=== PATIENT | female | born 1935 | race Caucasian/White ===

== ENCOUNTER 2019-12-19 17:21 | Observation (INO) | payer MEDICARE, SELFPAY ==
--- NOTE | ~2019-12-19 | CT_ITS ---
EXAMINATION: CT brain wo con DATE: 12/19/2019 18:36 INDICATION: Status post fall. Headache. TECHNIQUE: Computed tomography (CT) of the head was performed without intravenous contrast. The dose- length product was 605.33 mGy-cm. The mA was adjusted according to patient size. Iterative reconstruc tion technique was employed. COMPARISON: None FINDINGS: Generalized atrophy. There are scattered moderate periventricular and subcortical white mat ter changes, most likely related to small vessel ischemic disease (microangiopathy). There is intracr anial atherosclerosis. No acute intracranial hemorrhage, mass or mass effect. No significant abnormal ity of the paranasal sinuses or mastoids. No depressed skull fractures. IMPRESSION: 1. No acute intracranial abnormality. 2: Chronic age-related findings. Reviewed, dictated and finalized at location A.
--- NOTE | ~2019-12-19 | CT_ITS ---
EXAMINATION: CT cervical spine wo con DATE: 12/19/2019 18:36 INDICATION: Neck pain after fall. TECHNIQUE: Computed tomography (CT) of the cervical spine was performed without intravenous contrast. The dose-length product was 157 mGy-cm. Automated exposure control and iterative reconstruction tech nique were employed. COMPARISON: None FINDINGS: There is straightening of cervical lordosis. There is disc narrowing and endplate degenerat broderick changes at C5-6 and C6-7. There is degenerative anterolisthesis at C3-4 and retrolisthesis at C5- 6. There is multilevel facet and uncinate hypertrophy, most advanced at C4-5, C5-6 and C6-7. There is apical pleural thickening/scarring. Odontoid process within normal limits. No acute fracture or trau matic malalignment. No evidence for perched facet. IMPRESSION: 1. No acute abnormality of the cervical spine. 2: Severe cervical spondylosis. Reviewed, dictated and finalized at location A.
--- NOTE | ~2019-12-19 | XR_ITS ---
XR chest 1V portable 12/19/2019 18:51 Indication: Weakness Procedure: AP portable chest Comparison: 07/16/2013 Findings: Cardiomegaly. There is atherosclerosis and ectasia of the aorta. 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 No focal air space disease, pulmonary edema, pleu ral effusion or suspected pneumothorax. Impression: 1: No acute cardiopulmonary disease. Reviewed, dictated and finalized at location A. Impression: 1: No acute cardiopulmonary disease.
--- NOTE | ~2019-12-19 | CT_ITS ---
EXAMINATION: CT thoracic spine wo con DATE: 12/19/2019 20:58 INDICATION: Back pain. Status post fall. TECHNIQUE: Computed tomography (CT) of the thoracic spine was performed without intravenous contrast. The dose-length product was 1043.35 mGy-cm. Automated exposure control and iterative reconstruction technique were employed. COMPARISON: Thoracic spine series dated 12/19/2019 FINDINGS: There is a mild burst fracture at T12 which appears acute. There is subtle retropulsion pos teriorly. There is only approximately 10-15% loss of vertebral body height. There is mild thoracic sp ondylosis. There is bibasilar dependent atelectasis. There is atherosclerosis of the aorta. There is small hiatal hernia. No significant pleural or pericardial effusion. No significant paraspinal soft t issue abnormality. IMPRESSION: 1. Acute mild burst fracture of T12 with approximately 10-15% loss of vertebral body height. Reviewed, dictated and finalized at location A.
--- NOTE | ~2019-12-19 | XR_ITS ---
XR thoracic spine 3V, XR lumbar spine 2-3V 12/19/2019 18:51 Indication: Back pain after fall Procedure: 3 views of the thoracic spine and 3 views of the lumbar spine Comparison: Chest x-ray dated 07/16/2013 Findings: There is a superior endplate compression fracture of T12 with approximately 35% loss of lauro tebral body height. There is moderate lumbar spondylosis with grade 1 spondylolisthesis at L5-S1. The re is dextroscoliosis of the thoracic spine. Moderate thoracic spondylosis. Pedicles intact. Impression: 1: Superior endplate compression fracture of T12 with approximately 35 % loss vertebral body height, age indeterminate, although new compared with chest x-ray dated 07/16/2013. 2: Moderate thoracic and lumbar spondylosis. Reviewed, dictated and finalized at location A. Impression: 1: Superior endplate compression fracture of T12 with approximately 35 % loss v ertebral body height, age indeterminate, although new compared with chest x-ray dated 07/16/2013. 2: Moderate thoracic and lumbar spondylosis. Impression: 1: Superior endplate compression fracture of T12 with approximately 35 % loss v ertebral body height, age indeterminate, although new compared with chest x-ray dated 07/16/2013. 2: Moderate thoracic and lumbar spondylosis.
[2019-12-19 17:24] VITALS: BP 140/87; PULSE 85; RESP 20; TEMP 37.4; O2SAT 97
--- NOTE | 2019-12-19 17:58 | ED.GENADULT ---
HPI - General Adult General Chief complaint: Back Pain/Injury Stated complaint: Back pain Time Seen by Provider: 12/19/19 17:29 Source: family History of Present Illness HPI narrative: Patient is 84 years old white female, brought to the emergency room by her . Patient has dementia, oriented to her name only. Her telling me that patient been having back pain for years, worse over the last 2 weeks, got worse 3 days ago. Patient unable to get out of bed without assistance, patient also have poor appetite, poor p.o. intake for food and fluid, long hours sleep. He denies any fever, chills, nausea, vomiting, diarrhea. Patient had a fall 1 week ago while coming out of the house and running in the street. Patient does that every now and then. Last time was seen by over 1 year ago, does not take medicine. And she is full code Related Data Home Medications Medication Instructions Recorded Confirmed No Home Medications 12/19/19 12/19/19 Allergies Allergy/AdvReac Type Severity Reaction Status Date / Time Sulfa (Sulfonamide Allergy Mild Unknown Verified 12/19/19 18:04 Antibiotics) [place] Allergy Mild Unknown Uncoded 12/19/19 18:04 Review of Systems Review of Systems: ROS unobtainable: Yes unobtainable due to mental status Exam Narrative: Exam Narrative: General appearance: Well-developed, well-nourished Skin: Normal color Head: Normocephalic, nontraumatic Eyes: Clear conjunctiva ENT: Oropharynx normal, ears normal, nose normal Neck: Supple, nontender Chest and respiratory: Airway patent, no respiratory distress, no accessory muscle use Heart: Regular rate/rhythm Abdomen: Soft, nontender, no organomegaly, quiet bowel sounds Vascular: Normal peripheral pulses, normal capillary refill. Musculoskeletal: Diffuse tenderness of the back, patient have dementia, non-cooperative, unable to sit up from a laying down position or even rolling over to either side. Neurologic: Alert and oriented oriented to her name only Course Course Emergency Course: Stable Consultations Consultation #1: DR MANCUSO Recommended to admit patient overnight for follow-up. Date: 12/19/19 Time: 20:41 Vital Signs Vital signs: Vital Signs Temperature 37.4 C 12/19/19 17:24 Pulse Rate 85 12/19/19 17:24 Respiratory Rate 20 12/19/19 17:24 Blood Pressure 140/87 12/19/19 17:24 Pulse Oximetry 97 12/19/19 17:24 Temperature 37.4 C 12/19/19 17:24 Pulse Rate 85 12/19/19 17:24 Respiratory Rate 20 12/19/19 17:24 Blood Pressure 140/87 12/19/19 17:24 Pulse Oximetry 97 12/19/19 17:24 Medical Decision Making MDM Narrative Medical decision making narrative: Patient is healthy otherwise, does not take medications, history of dementia, last time was seen by over 1 year ago. My concern is urinary tract infection, pneumonia, electrolyte imbalance, advancing dementia, back fracture. Vital Signs Vital Signs: Vital Signs Temperature 37.4 C 12/19/19 17:24 Pulse Rate 85 12/19/19 17:24 Respiratory Rate 20 12/19/19 17:24 Blood Pressure 140/87 12/19/19 17:24 Pulse Oximetry 97 12/19/19 17:24 Temperature 37.4 C 12/19/19 17:24 Pulse Rate 85 12/19/19 17:24 Respiratory Rate 20 12/19/19 17:24 Blood Pressure 140/87 12/19/19 17:24 Pulse Oximetry 97 12/19/19 17:24 Lab Data Result diagrams: 12/19/19 18:01 12/19/19 18:01 Labs: Lab Results 12/19/19 12/19/19 12/19/19 Range/Units 18:01 18:01 18:01 WBC 10.2 H (4.5-10.0) K/mm3 RBC 5.02 (4.2-5.4) M/mm3 Hgb 15.7 H (12.0-15.0) g/dL Hct 45.1 (37.0-47.0) % MCV 89.8 (80-100) fl MCH 31.3 (26-34) p
[2019-12-19 18:06] LABS: Basophils Percent Auto 0.4 % (0.2-1.2); Eosinophils Absolute Auto 0.1 K/mm3 (0-0.3); Eosinophils Percent Auto 0.6 % (0-4.4); Hematocrit 45.1 % (37.0-47.0); Hemoglobin 15.7 g/dL (12.0-15.0); Immature Granulocyte Absolute 0.03 K/mm3 (0.00-0.031); Immature Granulocyte Percent A 0.3 % (0-0.5); Lymphocytes Absolute Auto 1.83 K/mm3 (0.9-3.2); Mean Corpuscular HGB Conc 34.8 g/dl (32-36); Mean Corpuscular Hemoglobin 31.3 pg (26-34); Mean Corpuscular Volume 89.8 fl (80-100); Mean Platelet Volume 11.5 fl (7.4-10.4); Monocytes Absolute Auto 1.2 K/mm3 (0.1-0.6); Monocytes Percent Auto 11.4 % (2.6-8.5); Neutrophils Percent Auto 69.3 % (45.5-73.1); Platelet Count Result 216 k/mm3 (150-375); Red Blood Count 5.02 M/mm3 (4.2-5.4); Red Cell Distribution Width 12.8 % (11.5-14.5); White Blood Count 10.2 K/mm3 (4.5-10.0)
[2019-12-19] MEDS: SODIUM CHLORIDE 0.9% IV 1,000 ML 999 ML IV CONT (18:16)
[2019-12-19 18:20] LABS: Alanine Aminotransferase 27 U/L (4-35); Albumin Level 4.3 g/dL (3.5-5.1); Alkaline Phosphatase 84 U/L (38-126); Anion Gap 13.1 mmol/L (7-16); Aspartate Amino Transferase 41 U/L (14-36); Bilirubin,Total 0.8 mg/dL (0.2-1.3); Blood Urea Nitrogen 18 mg/dL (7-17); CRP 3.9 mg/dL (<1.0); Calcium 9.3 mg/dL (8.4-10.2); Carbon Dioxide 21 mmol/L (22-30); Chloride 105 mmol/L (98-107); Estimated Glomerular Filt Rate > 60; Glucose 122 mg/dL (65-105); Potassium 4.1 mmol/L (3.4-5.0); Sodium 135 mmol/L (137-145)
[2019-12-19 18:30] LABS: Troponin I < 0.012 ng/mL (0.000-0.034)
[2019-12-19 18:37] LABS: Add Urine Microscopic? YES; Appearance Urine Clear (Clear); Bilirubin Urine Negative (Negative); Blood Urine Negative (Negative); Color Urine Yellow (Yellow); Glucose Urine UA Negative (Negative); Ketones Urine 1+ mg/dL (Negative); Leukocyte Esterase Ur 1+ LEU/UL (Negative); Mucus Urine Few /lpf; Nitrate Urine Negative (Negative); Protein Urine 1+ mg/dL (Negative); Specific Grav Ur 1.028 (1.001-1.035); Squamous Epithelial Cell Urine Occasional /hpf (Few)
[2019-12-19 18:40] LABS: Erythrocyte Sedimentation Rate 20 mm/hr (0-20)
--- NOTE | 2019-12-19 22:08 | PC.NURSE ---
request patient does not want patient to have an additional iv at this time. pt has had 3 and pulled them all out.
--- NOTE | 2019-12-19 23:20 | ADMGEN ---
This patient, Deepali Haro, was admitted to 2 Medical Room 256-01. Patient/family oriented to hospital policies and general routines including ID bracelet, bed and alarms, visiting hours, pain management, procedures, bathroom and other care routines, personal items, smoking policy, room service/diet, and visiting hours. Valuables list has been completed. Information on how to activate the Rapid Response Team has been discussed. Patient/Family are encouraged to report perceived risks to care and to ask questions if they do not understand what they are told or what they should do.
[2019-12-19 23:31] VITALS: BP 157/77; PULSE 75; RESP 20; TEMP 36.2; O2SAT 96; BMI 23.0
[2019-12-20 02:00] VITALS: BP 146/94; PULSE 75; RESP 20; TEMP 36.2; O2SAT 96
--- NOTE | 2019-12-20 03:03 | PM.IMHP ---
H&P: HPI History of Present Illness Chief complaint: back pain, weakness Narrative: Date and time of patient contact: 12/20/2019 at 03:15 Deepali Haro is a 84 year old female with a past medical history of coronary artery disease and dementia who presented to the ER from home via private vehicle due to worsening back pain. The patient has been having back pain for years but is worsened over the last 2 weeks. The patient has been unable to get out of bed without assistance for the last 3 days. She has had decreased oral intake and is bends sleeping excessively. The patient did have a fall about a week ago when she ran out of the house into the street as part of her dementia. The patient has not seen a doctor in over a year and does not take any home medications. The patient denies any pain currently. Source of information is past medical records from 2011 and ER report. Patient is alert oriented only to self. Review of Systems Review of Systems: ROS unobtainable: Yes unobtainable due to mental status ( Unobtainable due to the patient's dementia) [facility] Past Medical History Medical History (Updated 12/20/19 @ 03:17 by Candice Greenberg DO) Alzheimer's disease with late onset Hard of hearing Hyperlipidemia Osteoporosis Surgical History Surgical History (Updated 12/20/19 @ 03:14 by Candice Greenberg DO) History of colonoscopy 2008 that demonstrated hemorrhoids History of coronary artery stent placement With cardiac stent placed in 1998 and 2004 History of dilation and curettage Status post cataract extraction of both eyes with insertion of intraocular lens Family History Family History Mother Dementia CAD (coronary artery disease) Cerebrovascular accident Father CAD (coronary artery disease) Colon cancer Sibling Dementia TIA (transient ischemic attack) Heart attack Social History Social History (Updated 12/20/19 @ 03:15 by Candice Greenberg DO) Social History: Smoking status: Never smoker Alcohol intake: never Substance use: never Substance use type: does not use Living arrangements: with family Additional living arrangements comments: The patient lives at home with her who provides all her cares. 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 Spiritual care concerns: No Meds Home Medications and Allergies Home Medications Medication Instructions Recorded Confirmed Type multivitamin,[id number]-[id number] 1 tablet PO DAILY 12/20/19 12/20/19 History [Complete Multivitamin] Allergies Allergy/AdvReac Type Severity Reaction Status Date / Time Sulfa (Sulfonamide Allergy Mild Unknown Verified 12/19/19 18:04 Antibiotics) [place] Allergy Mild Unknown Uncoded 12/19/19 18:04 Vital Signs Vital Signs - 24 hr 12/19/19 17:24 12/19/19 23:31 12/20/19 02:00 Temperature 99.4 F 97.2 F L 97.2 F L Pulse Rate 85 75 75 Respiratory Rate 20 20 20 Blood Pressure 140/87 157/77 H 146/94 H Pulse Oximetry 97 96 96 Exam Narrative: Exam Narrative: PHYSICAL EXAM: WEIGHT 64.8 kg BMI 23.1 General: no acute distress, thin body habitus, elderly, frail HEENT: mucous membranes are tacky, no oral pharyngeal erythema, no scleral icterus, pupils are equal and reactive, head is normocephalic atraumatic Neck: no JVD, no lymphadenopathy, no tenderness to palpation Respiratory: clear to auscultation bilaterally, no increased work of breathing Cardiovascular: regular rate, regular rhythm, no murmurs Gastrointestinal: soft, nontender, nondistended, positive bowel sounds Skin: jaundice, no pallor Extremities: no clubbing, cyanosis or edema, moves all extremities equally Neurological: alert and oriented to self only, speech is clear and fluent. The sentence that she speaks will make sense but will not necessarily be the answer to the question that was asked. She is
[2019-12-20 04:00] VITALS: BP 156/74; PULSE 76; RESP 20; TEMP 36.2; O2SAT 94
--- NOTE | 2019-12-20 07:09 | PM.CNOR ---
Assessment and Plan Additional Plan Patient is an 84-year-old female who was admitted last evening with a compression deformity at T12. She has a history of a fall about a week ago and over the last several days her back pain has become excruciating. She does have a history of back pain in the past. Her fall was during an episode of confusion when she ran out into the street. She does have dementia. This morning she is very pleasant and home and describes how much her back is been hurting much more than she has ever had before. She is comfortable at rest lying supine. On exam she denies any numbness or tingling in her feet on light touch testing she has no lower extremity swelling. She moves her ankles and toes up and down without difficulty. CT scan shows a 15% compression deformity that represents impaction of the superior endplate of T12. There is a mild burst component without significant canal compromise. This should be treatable in a brace. We will ask [employer] to fit her for a TLSO. We will keep her at bed rest it until the TLSO was applied. Will of use SCDs for DVT prophylaxis. She has no swelling or edema in her legs whatsoever today. History of Present Illness HPI Consult date: 12/20/19 Chief complaint: back pain, weakness PMFSH Past Medical History Medical History (Updated 12/20/19 @ 03:17 by Candice Greenberg DO) Alzheimer's disease with late onset Hard of hearing Hyperlipidemia Osteoporosis Surgical History Surgical History (Updated 12/20/19 @ 03:14 by Candice Greenberg DO) History of colonoscopy 2008 that demonstrated hemorrhoids History of coronary artery stent placement With cardiac stent placed in 1998 and 2004 History of dilation and curettage Status post cataract extraction of both eyes with insertion of intraocular lens Family History Family History Mother Dementia CAD (coronary artery disease) Cerebrovascular accident Father CAD (coronary artery disease) Colon cancer Sibling Dementia TIA (transient ischemic attack) Heart attack Social History Social History (Updated 12/20/19 @ 03:15 by Candice Greenberg DO) Social History: Smoking status: Never smoker Alcohol intake: never Substance use: never Substance use type: does not use Living arrangements: with family Additional living arrangements comments: The patient lives at home with her who provides all her cares. 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 Spiritual care concerns: No Meds Home Medications and Allergies Home Medications Medication Instructions Recorded Confirmed Type multivitamin,[id number] 1 tablet PO DAILY 12/20/19 12/20/19 History [Complete Multivitamin] Allergies Allergy/AdvReac Type Severity Reaction Status Date / Time Sulfa (Sulfonamide Allergy Mild Unknown Verified 12/19/19 18:04 Antibiotics) [place] Allergy Mild Unknown Uncoded 12/19/19 18:04 Vital Signs Vital Signs - 24 hr 12/19/19 17:24 12/19/19 23:31 12/20/19 02:00 Temperature 37.4 C 36.2 C L 36.2 C L Pulse Rate 85 75 75 Respiratory Rate 20 20 20 Blood Pressure 140/87 157/77 H 146/94 H Pulse Oximetry 97 96 96 12/20/19 04:00 Temperature 36.2 C L Pulse Rate 76 Respiratory Rate 20 Blood Pressure 156/74 H Pulse Oximetry 94 Results Labs Result Diagrams: 12/19/19 18:01 12/19/19 18:01 Labs: Abnormal lab results 12/19/19 12/19/19 12/19/19 Range/Units 18:01 18:01 18:22 WBC 10.2 H (4.5-10.0) K/mm3 Hgb 15.7 H (12.0-15.0) g/dL MPV 11.5 H (7.4-10.4) fl Lymph % (Auto) 18.0 L (18.3-44.2) % [place] % (Auto) 11.4 H (2.6-8.5) % [place] # (Auto) 1.2 H (0.1-0.6) K/mm3 Absolute Neuts (auto) 7.0 H (1.3-6.7) K/mm3 Sodium 135 L (137-145) mmol/L Carbon Dioxide 21 L (22-30) mmol/L BUN 18 H D (7-17) mg/dL Glucose
[2019-12-20 08:00] VITALS: BP 139/80; PULSE 69; RESP 18; TEMP 35.9; O2SAT 94
--- NOTE | 2019-12-20 09:23 | PCPTNOTE ---
Pt on bedrest until TLSO brace delivered. Will see pt for PT evaluation once brace received.
--- NOTE | 2019-12-20 10:43 | PCOTNOTE ---
Patient on bedrest until TLSO brace is delivered. Will complete occupational therapy evaluation upon receipt of brace.
[2019-12-20 12:00] VITALS: BP 139/81; PULSE 70; RESP 20; TEMP 35.6; O2SAT 97
--- NOTE | 2019-12-20 13:26 | PCOTNOTE ---
OT evaluation on hold until TLSO arrives from [facility]. Spoke with RN, TLSO brace should arrive tomorrow 12/20. Will attempt OT evaluation upon brace arrival.
[2019-12-20 16:00] VITALS: BP 140/79; PULSE 69; RESP 18; TEMP 35.9; O2SAT 94
--- NOTE | 2019-12-20 18:12 | PM.IMPN ---
Progress Note: A&P Assessment and Plan (1) Closed wedge compression fracture of T12 vertebra: Qualifiers: Encounter type: subsequent encounter Fracture healing: with nonunion Qualified Code(s): S22.080K - Wedge compression fracture of T11-T12 vertebra, subsequent encounter for fracture with nonunion Code(s): S22.080A - Wedge compression fracture of T11-T12 vertebra, initial encounter for closed fracture Status: Acute Assessment and Plan: Continue pain control and monitor. Appreciate orthopedic surgery recommendations - awaiting TLSO brace from [facility] and anticipate discharge to SNF. (2) Dementia: Qualifiers: Alzheimer's disease onset: late-onset Dementia behavioral disturbance: with behavioral disturbance Dementia type: Alzheimer's disease Qualified Code(s): G30.1 - Alzheimer's disease with late onset; F02.81 - Dementia in other diseases classified elsewhere with behavioral disturbance Code(s): F03.90 - Unspecified dementia without behavioral disturbance Status: Chronic Assessment and Plan: Patient is currently calm and at baseline. Limit narcotic use to avoid increased confusion. Subjective Date/time seen: 12/20/19 1500 Interval history: Ms. Haro is an 84yo F admitted for acute back pain with a T12 compression fracture. She is feeling okay lying supine and pain is decently controlled at rest. She denies any chest pain or shortness of breath. She has tolerated some oral intake without nausea or vomiting. Review of Systems Review of Systems: Narrative: Twelve systems were reviewed with pertinent positives and negatives as per HPI. Exam Narrative: Exam Narrative: General: Elderly female resting comfortably supine in bed in no acute distress. HEENT: Normocephalic, EOMI, oral mucosa moist. Cardiovascular: Rate and rhythm are regular. Respiratory: Lungs clear to auscultation anteriorly and laterally. Respirations are even and nonlabored. Abdomen: Soft, non-tender, non-distended, bowel sounds present. Extremities: Peripheral pulses intact. No edema. Neuro: Alert and oriented to self and place. Not very talkative but speech is clear. No focal neurological deficits appreciated. Objective Data Vital Signs Vital Signs: Last Vital Signs Temp 96.1 F L 12/20/19 12:00 Pulse 70 12/20/19 12:00 Resp 20 12/20/19 12:00 BP 139/81 12/20/19 12:00 Pulse Ox 97 12/20/19 12:00 Intake/Output Intake/Output: Intake & Output 12/17/19 12/18/19 12/19/19 12/20/19 23:59 23:59 23:59 23:59 Intake Total 600 360 Output Total 250 Balance 350 360 Meds/Results Medications: Active Medications Generic Name Dose Route Start Last Admin Trade Name Freq PRN Reason Stop Dose Admin Hydrocodone Bitart/Acetaminophen 1 tab 12/19/19 21:17 12/20/19 08:13 [place] 5-325 Mg PO 1 tab Q4H PRN Administration Pain Rated 4-6 Ondansetron HCl 4 mg 12/19/19 21:17 Zofran Inj IV PUSH Q4H PRN Nausea Radiology Results: ITS Impressions Head CT 12/19/19 18:41 IMPRESSION: 1. No acute intracranial abnormality. 2: Chronic age-related findings. Cervical Spine CT 12/19/19 18:44 IMPRESSION: 1. No acute abnormality of the cervical spine. 2: Severe cervical spondylosis. Chest X-Ray 12/19/19 19:02 Impression: 1: No acute cardiopulmonary disease. Lumbar Spine X-Ray 12/19/19 19:03 Impression: 1: Superior endplate compression fracture of T12 with approximately 35 % loss vertebral body height, age indeterminate, although new compared with chest x-ray dated 07/16/2013. 2: Moderate thoracic and lumbar spondylosis. Thoracic Spine X-Ray 12/19/19 19:03 Impression: 1: Superior endplate compression fracture of T12 with approximately 35 % loss vertebral body height, age indeterminate, although new compared with chest x-ray dated 07/16/2013. 2: Moderate thoracic and lumbar spo
[2019-12-20 20:00] VITALS: BP 153/88; PULSE 90; RESP 18; TEMP 36.1; O2SAT 95
[2019-12-21] VITALS: BP 148/72; PULSE 89; RESP 18; TEMP 36.3; O2SAT 94
[2019-12-21 04:00] VITALS: BP 135/55; PULSE 79; RESP 18; TEMP 36.5; O2SAT 97
--- NOTE | 2019-12-21 07:35 | P.PNOP_ITS ---
Progress Note: A&P Additional Plan pt is scheduled to get TLSO brace today, once this applied can get pt up for ambulation. Still c/o pain in the back. Able to wiggle toes and ankles,no c/o of numbness in LE. no swelling in LE. Subjective Subjective Date/Time Seen: 12/21/19 07:35 Objective Data Vital Signs Vital Signs: Vital Signs - 24 hr 12/20/19 08:00 12/20/19 12:00 12/20/19 16:00 Temperature 35.9 C L 35.6 C L 35.9 C L Pulse Rate 69 70 69 Respiratory Rate 18 20 18 Blood Pressure 139/80 139/81 140/79 Pulse Oximetry 94 97 94 12/20/19 20:00 12/21/19 00:00 12/21/19 04:00 Temperature 36.1 C L 36.3 C L 36.5 C Pulse Rate 90 89 79 Respiratory Rate 18 18 18 Blood Pressure 153/88 H 148/72 H 135/55 L Pulse Oximetry 95 94 97 Intake/Output Intake/Output: Intake & Output 12/18/19 12/19/19 12/20/19 12/21/19 23:59 23:59 23:59 23:59 Intake Total 600 360 Output Total 250 900 Balance 350 -540 Meds/Results Medications: Active Medications Generic Name Dose Route Start Last Admin Trade Name Freq PRN Reason Stop Dose Admin Hydrocodone Bitart/Acetaminophen 1 tab 12/19/19 21:17 12/20/19 08:13 [place] 5-325 Mg PO 1 tab Q4H PRN Administration Pain Rated 4-6 Ondansetron HCl 4 mg 12/19/19 21:17 Zofran Inj IV PUSH Q4H PRN Nausea Radiology Results: ITS Impressions Head CT 12/19/19 18:41 IMPRESSION: 1. No acute intracranial abnormality. 2: Chronic age-related findings. Cervical Spine CT 12/19/19 18:44 IMPRESSION: 1. No acute abnormality of the cervical spine. 2: Severe cervical spondylosis. Chest X-Ray 12/19/19 19:02 Impression: 1: No acute cardiopulmonary disease. Lumbar Spine X-Ray 12/19/19 19:03 Impression: 1: Superior endplate compression fracture of T12 with approximately 35 % loss vertebral body height, age indeterminate, although new compared with chest x-ray dated 07/16/2013. 2: Moderate thoracic and lumbar spondylosis. Thoracic Spine X-Ray 12/19/19 19:03 Impression: 1: Superior endplate compression fracture of T12 with approximately 35 % loss vertebral body height, age indeterminate, although new compared with chest x-ray dated 07/16/2013. 2: Moderate thoracic and lumbar spondylosis. Thoracic Spine CT 12/19/19 21:03 IMPRESSION: 1. Acute mild burst fracture of T12 with approximately 10-15% loss of vertebral body height. Quality VTE Prophylaxis VTE prophylaxis: mechanical ordered ( SCDs)
[2019-12-21 08:05] LABS: Glucose Point of Care 92 (65-105)
--- NOTE | 2019-12-21 09:56 | PM.IMPN ---
Progress Note: A&P Assessment and Plan (1) Closed wedge compression fracture of T12 vertebra: Qualifiers: Encounter type: subsequent encounter Fracture healing: with nonunion Qualified Code(s): S22.080K - Wedge compression fracture of T11-T12 vertebra, subsequent encounter for fracture with nonunion Code(s): S22.080A - Wedge compression fracture of T11-T12 vertebra, initial encounter for closed fracture Status: Acute Assessment and Plan: Continue pain control and monitor. Appreciate orthopedic surgery recommendations - awaiting TLSO brace from [facility], should be delivered today and anticipate discharge to SNF. COVID testing for discharge planning. (2) Dementia: Qualifiers: Alzheimer's disease onset: late-onset Dementia behavioral disturbance: with behavioral disturbance Dementia type: Alzheimer's disease Qualified Code(s): G30.1 - Alzheimer's disease with late onset; F02.81 - Dementia in other diseases classified elsewhere with behavioral disturbance Code(s): F03.90 - Unspecified dementia without behavioral disturbance Status: Chronic Assessment and Plan: Patient is currently calm and at baseline. Limit narcotic use to avoid increased confusion. Subjective Date/time seen: 12/21/19 09:30 Interval history: Ms. Haro is an 84yo F admitted for acute back pain with a T12 compression fracture. She is feeling okay lying supine and pain is decently controlled at rest. Slept well last night and offers no complaints. She denies any chest pain or shortness of breath. She has tolerated some oral intake without nausea or vomiting. Pleasantly confused, able to answer questions but does repeat some questions and phrases. Review of Systems Review of Systems: Narrative: Twelve systems were reviewed with pertinent positives and negatives as per HPI. Exam Narrative: Exam Narrative: General: Elderly female resting comfortably supine in bed in no acute distress. HEENT: Normocephalic, EOMI, oral mucosa moist. Cardiovascular: Rate and rhythm are regular. Respiratory: Lungs clear to auscultation anteriorly and laterally. Respirations are even and nonlabored. Abdomen: Soft, non-tender, non-distended, bowel sounds present. Extremities: Peripheral pulses intact. No edema. Neuro: Alert and oriented to self, knows she is in the hospital. Appears to be at her baseline cognitively, no focal neuro deficits are noted. Able to wiggle toes and feet sensation intact CHRIS. Objective Data Vital Signs Vital Signs: Last Vital Signs Temp 97.7 F 12/21/19 04:00 Pulse 79 12/21/19 04:00 Resp 18 12/21/19 04:00 BP 135/55 L 12/21/19 04:00 Pulse Ox 97 12/21/19 04:00 Intake/Output Intake/Output: Intake & Output 12/18/19 12/19/19 12/20/19 12/21/19 23:59 23:59 23:59 23:59 Intake Total 600 360 100 Output Total 250 900 Balance 350 -540 100 Meds/Results Medications: Active Medications Generic Name Dose Route Start Last Admin Trade Name Freq PRN Reason Stop Dose Admin Hydrocodone Bitart/Acetaminophen 1 tab 12/19/19 21:17 12/21/19 08:05 [place] 5-325 Mg PO 1 tab Q4H PRN Administration Pain Rated 4-6 Ondansetron HCl 4 mg 12/19/19 21:17 Zofran Inj IV PUSH Q4H PRN Nausea Radiology Results: ITS Impressions Head CT 12/19/19 18:41 IMPRESSION: 1. No acute intracranial abnormality. 2: Chronic age-related findings. Cervical Spine CT 12/19/19 18:44 IMPRESSION: 1. No acute abnormality of the cervical spine. 2: Severe cervical spondylosis. Chest X-Ray 12/19/19 19:02 Impression: 1: No acute cardiopulmonary disease. Lumbar Spine X-Ray 12/19/19 19:03 Impression: 1: Superior endplate compression fracture of T12 with approximately 35 % loss vertebral body height, age indeterminate, although new compared with chest x-ray dated 07/16/2013. 2: Moderate thoracic and lumbar sp
[2019-12-21 10:00] VITALS: BP 115/65; PULSE 66; RESP 16; TEMP 36.4; O2SAT 95
--- NOTE | 2019-12-21 11:30 | PC.NURSE ---
Back brace was delivered. Notified PT/OT so they are able to complete eval. Spoke with Janny Brito.
[2019-12-21 14:00] VITALS: BP 134/82; PULSE 96; RESP 16; TEMP 36.4; O2SAT 98
[2019-12-21 18:00] VITALS: BP 154/85; PULSE 98; RESP 18; TEMP 36.8; O2SAT 100
[2019-12-21 18:03] LABS: SARS-CoV-2 RNA PCR Negative
[2019-12-21 21:53] VITALS: BP 158/77; PULSE 77; RESP 20; TEMP 36.2; O2SAT 97
[2019-12-22 02:00] VITALS: BP 130/76; PULSE 79; RESP 18; TEMP 36.2; O2SAT 96
[2019-12-22 04:00] VITALS: BP 135/86; PULSE 70; RESP 20; TEMP 36.6; O2SAT 94
[2019-12-22 06:35] LABS: Basophils Percent Auto 0.5 % (0.2-1.2); Eosinophils Absolute Auto 0.2 K/mm3 (0-0.3); Eosinophils Percent Auto 3.5 % (0-4.4); Hematocrit 40.9 % (37.0-47.0); Hemoglobin 14.2 g/dL (12.0-15.0); Immature Granulocyte Absolute 0.01 K/mm3 (0.00-0.031); Immature Granulocyte Percent A 0.2 % (0-0.5); Lymphocytes Absolute Auto 1.54 K/mm3 (0.9-3.2); Lymphocytes Percent Auto 23.5 % (18.3-44.2); Mean Corpuscular HGB Conc 34.7 g/dl (32-36); Mean Corpuscular Hemoglobin 31.1 pg (26-34); Mean Corpuscular Volume 89.7 fl (80-100); Mean Platelet Volume 10.7 fl (7.4-10.4); Monocytes Absolute Auto 0.7 K/mm3 (0.1-0.6); Monocytes Percent Auto 11.3 % (2.6-8.5); Platelet Count Result 215 k/mm3 (150-375); Red Blood Count 4.56 M/mm3 (4.2-5.4); Red Cell Distribution Width 12.4 % (11.5-14.5); White Blood Count 6.6 K/mm3 (4.5-10.0)
[2019-12-22 06:48] LABS: Anion Gap 8.4 mmol/L (7-16); Blood Urea Nitrogen 14 mg/dL (7-17); Calcium 8.7 mg/dL (8.4-10.2); Carbon Dioxide 24 mmol/L (22-30); Chloride 105 mmol/L (98-107); Estimated CRCL calculation 68 ml/min; Estimated Glomerular Filt Rate > 60; Glucose 102 mg/dL (65-105); Magnesium 2.1 mg/dL (1.6-2.3); Potassium 3.4 mmol/L (3.4-5.0); Sodium 134 mmol/L (137-145)
[2019-12-22] MEDS: POTASSIUM CHLORIDE 20 MEQ TABLET 40 MEQ PO (09:11)
--- NOTE | 2019-12-22 10:02 | PM.DS ---
DS: Admitting Diagnosis Admitting Diagnosis Admitting Diagnosis: Wedge compression fracture of T11-T12 vertebra, subsequent encounter for fracture with nonunion DS: Discharge Diagnosis Discharge Diagnosis (1) Closed wedge compression fracture of T12 vertebra: Qualifiers: Encounter type: subsequent encounter Fracture healing: with nonunion Qualified Code(s): S22.080K - Wedge compression fracture of T11-T12 vertebra, subsequent encounter for fracture with nonunion Code(s): S22.080A - Wedge compression fracture of T11-T12 vertebra, initial encounter for closed fracture Status: Acute Assessment and Plan: Patient presents with worsening back pain. Imaging demonstrates mild T12 burst fracture. Seen by orthopedic surgery. TLSO back brace fitted by [employer]. Continue PT/OT at SNF. Brace to be worn any time she is out of bed. Follow up with Dr Alegria in 1 week. (2) Dementia: Qualifiers: Dementia type: Alzheimer's disease Alzheimer's disease onset: late-onset Dementia behavioral disturbance: with behavioral disturbance Qualified Code(s): G30.1 - Alzheimer's disease with late onset; F02.81 - Dementia in other diseases classified elsewhere with behavioral disturbance Code(s): F03.90 - Unspecified dementia without behavioral disturbance Status: Chronic Assessment and Plan: Patient is currently calm and at baseline. Limit narcotic use to avoid increased confusion. DS: Summary Hospital Course Hospital Course: Date of Service 12/22/19 Ms. Haro is a pleasantly confused 84yo F with dementia who presented to the ED for evaluation of worsening back pain. Her significant other, Mao, described that the patient does not normally move much at home, but that she had fallen multiple times and had been complaining of back pain over the last 2 weeks which had worsened over the last 2 days. Imaging demonstrated an acute mild burst fracture of the T12 vertebrae with approximately 10-15% loss of vertebral height. Orthopedic surgery was consulted and she was seen by Dr Alegria. He helped arrange a TLSO back brace fitted by [employer]. She worked with PT/OT after brace was delivered and was felt to be a good candidate for continued therapy at SNF. She was discharged to SNF in hemodynamically stable condition 12/22/19 with instructions to follow up with Dr Alegria in 1 week. She was oriented to self but normally not place or time. Calm and pleasant. Time Spent with Patient Time attestation: Total time spent providing and/or coordinating discharge services: 35 minutes Exam Narrative: Exam Narrative: General: Elderly female resting comfortably supine in bed in no acute distress. HEENT: Normocephalic, EOMI, oral mucosa moist. Cardiovascular: Rate and rhythm are regular. Respiratory: Lungs clear to auscultation anteriorly and laterally. Respirations are even and nonlabored. Abdomen: Soft, non-tender, non-distended, bowel sounds present. Extremities: Peripheral pulses intact. No edema. Neuro: Alert and oriented to self, knows she is in the hospital. Appears to be at her baseline cognitively, no focal neuro deficits are noted. Able to wiggle toes and feet sensation intact CHRIS. DS: Data Data Completed and Pending Labs on day of discharge: Last Vital Signs Temp 97.5 F L 12/22/19 10:23 Pulse 87 12/22/19 10:23 Resp 19 12/22/19 10:23 BP 139/75 12/22/19 10:23 Pulse Ox 95 12/22/19 10:[address] 12/19/19 18:41 IMPRESSION: 1. No acute intracranial abnormality. 2: Chronic age-related findings. Cervical Spine CT 12/19/19 18:44 IMPRESSION: 1. No acute abnormality of the cervical spine. 2: Severe cervical spondylosis. Chest X-Ray 12/19/19 19:02 Impression: 1: No acute cardiopulmonary disease. Lumbar Spine X-Ray 12/19/19 19:03 Impression: 1: Superior endplate compression fracture of
[2019-12-22 10:23] VITALS: BP 139/75; PULSE 87; RESP 19; TEMP 36.4; O2SAT 95
--- NOTE | 2019-12-22 13:00 | PM.PNORT ---
Progress Note: A&P Additional Plan pt has TLSO brace, zarinaggcapo toes, working on discharging pt Subjective Subjective Date/Time Seen: 12/22/19 13:00 Objective Data Vital Signs Vital Signs: Vital Signs - 24 hr 12/21/19 14:00 12/21/19 18:00 12/21/19 21:53 Temperature 36.4 C L 36.8 C 36.2 C L Pulse Rate 96 98 77 Respiratory Rate 16 18 20 Blood Pressure 134/82 154/85 H 158/77 H Pulse Oximetry 98 100 97 12/22/19 02:00 12/22/19 04:00 12/22/19 10:23 Temperature 36.2 C L 36.6 C 36.4 C L Pulse Rate 79 70 87 Respiratory Rate 18 20 19 Blood Pressure 130/76 135/86 139/75 Pulse Oximetry 96 94 95 Intake/Output Intake/Output: Intake & Output 12/19/19 12/20/19 12/21/19 12/22/19 23:59 23:59 23:59 23:59 Intake Total 600 360 830 240 Output Total 250 900 Balance 350 -540 830 240 Meds/Results Medications: Active Medications Generic Name Dose Route Start Last Admin Trade Name Freq PRN Reason Stop Dose Admin Acetaminophen 650 mg 12/21/19 10:45 Tylenol Tablet PO Q4H PRN Pain Rated 5 or Less Hydrocodone Bitart/Acetaminophen 1 tab 12/21/19 10:45 [place] 5-325 Mg PO Q4H PRN Pain Rated 6 or Greater Ondansetron HCl 4 mg 12/19/19 21:17 Zofran Inj IV PUSH Q4H PRN Nausea Radiology Results: ITS Impressions Head CT 12/19/19 18:41 IMPRESSION: 1. No acute intracranial abnormality. 2: Chronic age-related findings. Cervical Spine CT 12/19/19 18:44 IMPRESSION: 1. No acute abnormality of the cervical spine. 2: Severe cervical spondylosis. Chest X-Ray 12/19/19 19:02 Impression: 1: No acute cardiopulmonary disease. Lumbar Spine X-Ray 12/19/19 19:03 Impression: 1: Superior endplate compression fracture of T12 with approximately 35 % loss vertebral body height, age indeterminate, although new compared with chest x-ray dated 07/16/2013. 2: Moderate thoracic and lumbar spondylosis. Thoracic Spine X-Ray 12/19/19 19:03 Impression: 1: Superior endplate compression fracture of T12 with approximately 35 % loss vertebral body height, age indeterminate, although new compared with chest x-ray dated 07/16/2013. 2: Moderate thoracic and lumbar spondylosis. Thoracic Spine CT 12/19/19 21:03 IMPRESSION: 1. Acute mild burst fracture of T12 with approximately 10-15% loss of vertebral body height. Labs Labs: Laboratory Results - last 24 hr 12/21/19 12/22/19 12/22/19 11:06 06:30 06:30 WBC 6.6 RBC 4.56 Hgb 14.2 Hct 40.9 MCV 89.7 MCH 31.1 MCHC 34.7 RDW 12.4 Plt Count 215 MPV 10.7 H Immature Gran % (Auto) 0.2 Neut % (Auto) 61.0 Lymph % (Auto) 23.5 [place] % (Auto) 11.3 H Eos % (Auto) 3.5 Baso % (Auto) 0.5 Lymph # (Auto) 1.54 [place] # (Auto) 0.7 H Eos # (Auto) 0.2 Baso # (Auto) 0.0 Abs Immat Gran (auto) 0.01 Absolute Neuts (auto) 4.0 Absolute Nucleated RBC 0.0 Nucleated RBC % 0.0 Sodium 134 L Potassium 3.4 Chloride 105 Carbon Dioxide 24 Anion Gap 8.4 BUN 14 Creatinine 0.50 L Estim Creat Clear Calc 68 Estimated GFR > 60 Glucose 102 Calcium 8.7 Magnesium 2.1 SARS-CoV-2 RNA (RT-PCR) Negative Quality VTE Prophylaxis VTE prophylaxis: mechanical ordered ( SCDs)
--- NOTE | 2019-12-22 14:05 | PC.NURSE ---
Called report to [facility] and spoke with nurse Johanna. All questions and concerns answered at this time.
== END 2019-12-22 15:06 ==
LOC: ANHED 21:31 → ANH2MED 21:54
PROVIDERS: Physician Assistant; Admitting Provider Internal Medicine; Emergency Provider Emergency Medicine; PCP Internal Medicine; Visit Provider Internal Medicine
DX: S22.080A Wedge compression fracture of T11-T12 vertebra, initial encounter for closed fracture (principal); W19.XXXA Unspecified fall, initial encounter; R29.6 Repeated falls; G30.1 Alzheimer's disease with late onset; F02.81 Dementia in other diseases classified elsewhere, unspecified severity, with behavioral disturbance; R53.1 Weakness; I25.10 Atherosclerotic heart disease of native coronary artery without angina pectoris; Z11.59 Encounter for screening for other viral diseases
CPT/HCPCS: 36415; 51701; 70450; 71045; 72072; 72100; 72125; 72128; 80048; 80053; 81001; 83735; 84484; 85025; 85652; 86140; 87086; 87635; 96360; 96361; 97110; 97161; 97165; 97530; 99285; A9270; C9803; G0378; J7030; U0003

== ENCOUNTER 2020-01-26 15:38 | Observation (INO) | payer MEDICARE, SELFPAY ==
--- NOTE | ~2020-01-26 | XR_ITS ---
XR chest 1V portable DATE: 01/26/2020 16:23 INDICATION: Myocardial infarction. Stent placement. History of T12 fracture. TECHNIQUE: Portable AP chest on 01/26/2020 at 1615 hours COMPARISON: 12/19/2019 AP chest FINDINGS: Heart size is normal. There is aortic calcification, ectasia and unfolding. No hilar or m ediastinal enlargement. No pulmonary infiltrate or consolidation, pulmonary vascular congestion or p leural effusion or pneumothorax. Osteopenia. IMPRESSION: No active cardiopulmonary disease Aortic atherosclerosis Reviewed, dictated and finalized at location A.
[2020-01-26 15:57] VITALS: BP 165/84; PULSE 65; RESP 16; TEMP 36.8; O2SAT 98
--- NOTE | 2020-01-26 16:01 | ECG_ITS ---
Measurements Intervals [place] Rate: 63 P: 68 UT: 218 QRS: -46 QRSD: 135 T: 5 QT: 457 QTc: 470 Interpretive Statements SINUS RHYTHM WITH FIRST DEGREE AV BLOCK RIGHT BUNDLE BRANCH BLOCK LEFT ANTERIOR FASCICULAR BLOCK LOW VOLTAGE- PRECORDIAL LEADS BASELINE ARTIFACT- I, II, III, AVR, AVL, AVF, V1-V6 ABNORMAL ECG Electronically Signed On 01-27-2020 6:43:03 CDT by Thierry Arreguin D.O.
[2020-01-26] MEDS: MORPHINE SULFATE 2 MG/ML INJ IV PUSH (16:39)
[2020-01-26] MEDS: SODIUM CHLORIDE 0.9% IV 1,000 ML 999 ML IV CONT (16:40)
--- NOTE | 2020-01-26 16:53 | ED.WEAKNESS ---
HPI - Weakness General Chief complaint: Weakness Stated complaint: BACK PAIN Time Seen by Provider: 01/26/20 15:48 History of Present Illness HPI Narrative: Patient is an 84-year-old female who presents ER with deconditioning and back pain. Patient suffered a T12 fracture 3 weeks ago. She went to [facility] and was rehabbing. She was then released. Since being home patient has had gradual decline in her functional ability to walk. She cannot even make it up to go to the bathroom and is urinating on herself. She said no fevers or chills. She is had decreased oral intake of food and water. offered history as patient has dementia. She has had no falls since being back at her home. Related Data Home Medications Medication Instructions Recorded Confirmed Complete Multivitamin 1 tablet PO DAILY 12/20/19 12/20/19 Allergies Allergy/AdvReac Type Severity Reaction Status Date / Time Sulfa (Sulfonamide Allergy Mild Unknown Verified 12/19/19 18:04 Antibiotics) [place] Allergy Mild Unknown Uncoded 12/19/19 18:04 Review of Systems Review of Systems: ROS unobtainable: Yes unobtainable due to mental status PMFSH Past Medical History Medical History (Updated 01/26/20 @ 19:08 by Josh Quintero MD) Alzheimer's disease with late onset Hard of hearing Hyperlipidemia Osteoporosis Surgical History Surgical History (Updated 12/20/19 @ 03:14 by Candice Greenberg DO) History of colonoscopy 2008 that demonstrated hemorrhoids History of coronary artery stent placement With cardiac stent placed in 1998 and 2004 History of dilation and curettage Status post cataract extraction of both eyes with insertion of intraocular lens Social History Social History (Updated 12/20/19 @ 03:15 by Candice Greenberg DO) Social History: Smoking status: Never smoker Alcohol intake: never Substance use: never Substance use type: does not use Additional living arrangements comments: The patient lives at home with her who provides all her cares. 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 Gender identity (if verbalized by the patient): Female Spiritual care concerns: No Exam Narrative: Exam Narrative: GENERAL: Well-appearing, well-nourished, and has pain in her back with any movement of the torso. HEAD: Normocephalic, atraumatic. ENT: Mucous membranes moist. CHEST: Clear to auscultation. No respiratory distress. HEART: Regular rate and rhythm. Normal peripheral pulses. ABDOMEN: Soft, nontender, nondistended. EXTREMITIES: Normal range of motion. No edema. NEURO: No focal deficits. Alert and oriented x1-2. PSYCH: Normal mood and affect. Course Course Emergency Course: Admit to hospitalist service with IV antibiotics for UTI. Patient also likely need social service consult again for intermediate placement or some sort of health. Vital Signs Vital signs: Vital Signs Temperature 98.2 F 01/26/20 15:57 Pulse Rate 65 01/26/20 15:57 Respiratory Rate 16 01/26/20 15:57 Blood Pressure 165/84 H 01/26/20 15:57 Pulse Oximetry 98 01/26/20 15:57 Temperature 98.2 F 01/26/20 15:57 Pulse Rate 65 01/26/20 15:57 Respiratory Rate 16 01/26/20 15:57 Blood Pressure 165/84 H 01/26/20 15:57 Pulse Oximetry 98 01/26/20 15:57 MDM - Weakness Lab Data Result diagrams: 01/26/20 16:48 01/26/20 16:48 Labs: Lab Results 01/26/20 01/26/20 01/26/20 Range/Units 16:48 16:48 16:48 WBC 6.5 (4.5-10.0) K/mm3 RBC 4.35 (4.2-5.4) M/mm3 Hgb 13.6 (12.0-15.0) g/dL Hct 39.8 (37.0-47.0) % MCV 91.5 (80-100) fl MCH 31.3 (26-34) pg MCHC 34.2 (32-36) g/dl RDW 13.1 (11.5-14.5) % Plt Count 246 (150-375) k/mm3 MPV 11.4 H (7.4-10.4) fl Immature Gran % (Auto) 0.3 (0-0.5) % Neut % (Auto) 61.4 (45.5-73.1) % Lymph % (Auto) 25.9 (18.3-44.2) % [place] % (Aut
[2020-01-26 16:58] LABS: Basophils Percent Auto 0.5 % (0.2-1.2); Eosinophils Absolute Auto 0.1 K/mm3 (0-0.3); Eosinophils Percent Auto 1.7 % (0-4.4); Hematocrit 39.8 % (37.0-47.0); Hemoglobin 13.6 g/dL (12.0-15.0); Immature Granulocyte Absolute 0.02 K/mm3 (0.00-0.031); Immature Granulocyte Percent A 0.3 % (0-0.5); Lymphocytes Absolute Auto 1.68 K/mm3 (0.9-3.2); Lymphocytes Percent Auto 25.9 % (18.3-44.2); Mean Corpuscular HGB Conc 34.2 g/dl (32-36); Mean Corpuscular Hemoglobin 31.3 pg (26-34); Mean Corpuscular Volume 91.5 fl (80-100); Mean Platelet Volume 11.4 fl (7.4-10.4); Monocytes Absolute Auto 0.7 K/mm3 (0.1-0.6); Monocytes Percent Auto 10.2 % (2.6-8.5); Neutrophils Percent Auto 61.4 % (45.5-73.1); Platelet Count Result 246 k/mm3 (150-375); Red Blood Count 4.35 M/mm3 (4.2-5.4); Red Cell Distribution Width 13.1 % (11.5-14.5); White Blood Count 6.5 K/mm3 (4.5-10.0)
[2020-01-26 17:04] LABS: Add Urine Microscopic? YES; Appearance Urine Cloudy (Clear); Bacteria Urine 1+ /hpf; Bilirubin Urine Negative (Negative); Blood Urine Negative (Negative); Color Urine Yellow (Yellow); Glucose Urine UA Negative (Negative); Ketones Urine Negative (Negative); Leukocyte Esterase Ur 2+ LEU/UL (Negative); Mucus Urine Few /lpf; Nitrate Urine Positive (Negative); Protein Urine Negative (Negative); Specific Grav Ur 1.008 (1.001-1.035); Urobilinogen Urine Negative mg/dL (<2.0); WBC Urine 16-20 /hpf
[2020-01-26 17:12] LABS: Alanine Aminotransferase 19 U/L (4-35); Albumin Level 3.5 g/dL (3.5-5.1); Alkaline Phosphatase 120 U/L (38-126); Anion Gap 7 mmol/L (8-16); Aspartate Amino Transferase 24 U/L (14-36); Bilirubin,Total 0.7 mg/dL (0.2-1.3); Blood Urea Nitrogen 5 mg/dL (7-17); Calcium 8.6 mg/dL (8.4-10.2); Carbon Dioxide 28 mmol/L (22-30); Chloride 103 mmol/L (98-107); Estimated CRCL calculation 65 ml/min; Estimated Glomerular Filt Rate > 60; Glucose 90 mg/dL (65-105); Potassium 3.3 mmol/L (3.4-5.0); Sodium 138 mmol/L (137-145)
[2020-01-26 19:25] VITALS: BP 138/71; PULSE 81; RESP 15; O2SAT 94
--- NOTE | 2020-01-26 19:26 | PC.NURSE ---
Assumed care of pt. at this time. Report from BARBER Kang
[2020-01-26 20:42] VITALS: BP 171/67; PULSE 63; RESP 12; O2SAT 94
--- NOTE | 2020-01-26 20:54 | PM.IMHP ---
H&P: HPI History of Present Illness Date/Time: 01/26/20 23:20 Chief complaint: weakness Narrative: Deepali Haro is a 84 year old female with a mask medical history of advancing dementia, and recent thoracic compression fracture following a fall who presented to the ER from home due to weakness and decreased oral intake . The patient was initially diagnosed with a T12 compression fracture 12/20/2019 when she wondered out of her house and fell. the patient was fitted for a TLSO brace and was evaluated by physical therapy and occupational therapy. The patient was then discharged on 12/22/2019 To [facility] for therapy. The patient had been having a gradual decline in her functional status since the beginning of November. She had reportedly had an improvement in her functional status prior to being discharged back home.The patient had returned home a few days ago. Since returning home she is back to laying in the bed all the time and not eating and drinking. The patient refuses to get out of bed. She has also been incontinent of urine. There is no documented record of fevers or chills. The patient has not had recurrent falls since she returned home. the patient does not complain of pain currently. The patient is only alert oriented to herself and intermittently to fact that she is in the hospital. Source of information is past medical records and ER records. Review of Systems Review of Systems: ROS unobtainable: Yes unobtainable due to medical condition ( limited due to patient's dementia) PMFSH Past Medical History Medical History Alzheimer's disease with late onset Hard of hearing Hyperlipidemia Osteoporosis Surgical History Surgical History History of colonoscopy 2008 that demonstrated hemorrhoids History of coronary artery stent placement With cardiac stent placed in 1998 and 2004 History of dilation and curettage Status post cataract extraction of both eyes with insertion of intraocular lens Social History Social History Social History: Smoking status: Never smoker Alcohol intake: never Substance use: never Substance use type: does not use Additional living arrangements comments: The patient lives at home with her who provides all her cares. 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 Gender identity (if verbalized by the patient): Female Sexual Orientation (if Verbalized by the Patient): Straight or Heterosexual Spiritual care concerns: No Meds Home Medications and Allergies Home Medications Medication Instructions Recorded Confirmed Type Complete Multivitamin 1 tablet PO DAILY 12/20/19 01/26/20 History acetaminophen [[place] 650 mg PO Q4H PRN #60 tablet 12/22/19 01/26/20 Rx (acetaminophen)] tramadol 50 mg tablet 50 mg PO Q8H PRN #90 tablet 12/26/19 01/26/20 Rx Allergies Allergy/AdvReac Type Severity Reaction Status Date / Time Sulfa (Sulfonamide Allergy Mild Unknown Verified 01/26/20 21:20 Antibiotics) [place] Allergy Mild Unknown Uncoded 01/26/20 21:20 Vital Signs Vital Signs - 24 hr 01/26/20 15:57 01/26/20 19:25 01/26/20 20:42 Temperature 98.2 F Pulse Rate 65 81 63 Respiratory Rate 16 15 12 Blood Pressure 165/84 H 138/71 171/67 H Pulse Oximetry 98 94 94 Exam Narrative: Exam Narrative: PHYSICAL EXAM: WEIGHT 65 kg BMI 23.8 General: No acute distress, well-developed well-nourished HEENT: mucous membranes are tacky, no oral pharyngeal erythema, no scleral icterus, pupils are equal and reactive, head is normocephalic atraumatic Respiratory: clear to auscultation bilaterally, no increased work of breathing Cardiovascular: regular rate, regular rhythm, no murmurs, 2+ bilateral radial and pedal pulses Gastrointestinal: soft,
--- NOTE | 2020-01-26 20:56 | ADMGEN ---
This patient, Deepali Haro, was admitted to Medical Room 347-01. Patient/family oriented to hospital policies and general routines including ID bracelet, bed and alarms, visiting hours, pain management, procedures, bathroom and other care routines, personal items, smoking policy, room service/diet, and visiting hours. Valuables list has been completed. Information on how to activate the Rapid Response Team has been discussed. Patient/Family are encouraged to report perceived risks to care and to ask questions if they do not understand what they are told or what they should do.
[2020-01-26 21:07] VITALS: BP 191/75; PULSE 74; RESP 20; TEMP 36.3; O2SAT 96
[2020-01-26 21:35] VITALS: BMI 22.1
[2020-01-26] MEDS: SODIUM CHLORIDE 0.9% IV 1,000 ML 100 ML IV CONT (22:15)
[2020-01-27] MEDS: POTASSIUM CHLORIDE 20 MEQ PACKET (FOR LIQUID) 40 MEQ PO (01:43)
[2020-01-27 04:00] VITALS: BP 185/85; PULSE 74; RESP 18; TEMP 36.1; O2SAT 96
[2020-01-27 08:00] VITALS: PULSE 74; RESP 18; O2SAT 96
[2020-01-27] MEDS: ACETAMINOPHEN 325 MG TABLET 650 MG PO (08:41)
--- NOTE | 2020-01-27 11:17 | PM.IMPN ---
Progress Note: A&P Assessment and Plan (1) Acute UTI: Code(s): N39.0 - Urinary tract infection, site not specified Status: Acute Assessment and Plan: Preliminary urine culture shows Gram-negative bacilli. Continue empiric antibiotic therapy with Rocephin. Await results of final urine cultures and tailor antibiotics accordingly Discontinue IV fluids as patient is eating and drinking. (2) Dementia: Qualifiers: Dementia type: Alzheimer's disease Alzheimer's disease onset: late-onset Dementia behavioral disturbance: with behavioral disturbance Qualified Code(s): G30.1 - Alzheimer's disease with late onset; F02.81 - Dementia in other diseases classified elsewhere with behavioral disturbance Code(s): F03.90 - Unspecified dementia without behavioral disturbance Status: Chronic Assessment and Plan: Patient is A&O x1 and is pleasantly confused. Upon review of prior hospitalization notes, patient appears to be at baseline. She is calm and cooperative. Limit narcotic use to decrease confusion Continue fall precautions. (3) Closed wedge compression fracture of T12 vertebra: Code(s): S22.080A - Wedge compression fracture of T11-T12 vertebra, initial encounter for closed fracture Status: Acute Assessment and Plan: patient was seen by orthopedic surgery at prior hospitalization in November 2019 and was fitted for TLSO brace and received therapy at SNF. She was just discharged home a few days prior to presentation. Continue TLSO brace any time she is out of bed. Patient's has brought this brace from home. PT and OT evaluation Acetaminophen as needed for pain. If pain is uncontrolled will consider addition of tramadol, but would like to avoid if possible. (4) Hypertension: Code(s): I10 - Essential (primary) hypertension Status: Acute Assessment and Plan: Blood pressures reviewed today and are not at goal in 180s systolic. She does not carry a diagnosis of essential hypertension and blood pressures were generally well controlled at her last hospital stay. Will add amlodipine 5 mg given increase in blood pressure readings. Monitor blood pressures closely. Subjective Date/time seen: 01/27/20 11:17 Interval history: Date of service: 01/27/2020 Deepali Haro is an 84-year-old female with a history of Alzheimer's disease who is seen in follow-up for urinary tract infection. She reports that she is feeling well today. She has no complaints at this time. She is not in any pain. She denies any urinary symptoms. She reports that she has been urinating regularly and denies hematuria or dysuria. She states that she had a bowel movement yesterday. She ate a good breakfast this morning. She denies nausea, vomiting, fever, chills, abdominal pain, flank pain, or back pain. She denies cough, shortness of breath, dizziness, or lightheadedness. She has a very mild headache. She is quite confused. She is only oriented to herself. When asked additional questions she attempts to read from the white board in her room to find the answer. For example when asked where she was, she looked up at the board and answered my pain plan, which was written on the board in front of her. Review of Systems Review of Systems: Narrative: a 12 point review of systems was reviewed pertinent positives and negatives as per HPI. Exam Narrative: Exam Narrative: Ms. Haro is a well nourished 84 year old female who is lying semi-recumbent in bed. She appears comfortable and is in no acute respiratory distress. HR 74, BP 185/85, RR 18, T 97.0?, 96% on room air Neuro: awake, alert and oriented x1, speech clear, no focal neuro deficits noted, confused HEENMT: normocephalic, atraumatic, EOMI, sclerae anicteric, moist oral mucosa, tongue midline, nares patent Neck: supple, no lymphadenopathy Respiratory: clear to auscultation bilater
[2020-01-27] MEDS: SODIUM CHLORIDE 0.9% IV 1,000 ML 100 ML IV CONT (11:44)
[2020-01-27 14:00] VITALS: BP 149/89; PULSE 105; RESP 22; TEMP 36.9; O2SAT 98
[2020-01-27] MEDS: amLODIPine BESYLATE 5 MG TABLET PO (17:40)
[2020-01-27 20:00] VITALS: BP 155/78; PULSE 73; RESP 20; TEMP 36.6; O2SAT 97
[2020-01-27 22:26] LABS: SARS-CoV-2 RNA PCR Negative
[2020-01-28 05:29] VITALS: BP 164/84; PULSE 74; RESP 20; TEMP 36.3; O2SAT 97
[2020-01-28 06:24] LABS: Basophils Percent Auto 0.6 % (0.2-1.2); Eosinophils Absolute Auto 0.2 K/mm3 (0-0.3); Eosinophils Percent Auto 3.5 % (0-4.4); Hemoglobin 14.7 g/dL (12.0-15.0); Immature Granulocyte Absolute 0.01 K/mm3 (0.00-0.031); Immature Granulocyte Percent A 0.2 % (0-0.5); Lymphocytes Absolute Auto 1.73 K/mm3 (0.9-3.2); Lymphocytes Percent Auto 27.6 % (18.3-44.2); Mean Corpuscular HGB Conc 34.2 g/dl (32-36); Mean Corpuscular Hemoglobin 30.8 pg (26-34); Mean Corpuscular Volume 90.1 fl (80-100); Mean Platelet Volume 11.5 fl (7.4-10.4); Monocytes Absolute Auto 0.6 K/mm3 (0.1-0.6); Monocytes Percent Auto 9.9 % (2.6-8.5); Neutrophils Absolute Auto 3.7 K/mm3 (1.3-6.7); Neutrophils Percent Auto 58.2 % (45.5-73.1); Platelet Count Result 284 k/mm3 (150-375); Red Blood Count 4.77 M/mm3 (4.2-5.4); Red Cell Distribution Width 13.1 % (11.5-14.5); White Blood Count 6.3 K/mm3 (4.5-10.0)
[2020-01-28 06:38] LABS: Anion Gap 7 mmol/L (8-16); Blood Urea Nitrogen 3 mg/dL (7-17); Calcium 9.2 mg/dL (8.4-10.2); Carbon Dioxide 29 mmol/L (22-30); Chloride 102 mmol/L (98-107); Estimated CRCL calculation 65 ml/min; Estimated Glomerular Filt Rate > 60; Glucose 98 mg/dL (65-105); Potassium 3.1 mmol/L (3.4-5.0); Sodium 138 mmol/L (137-145)
[2020-01-28 08:00] VITALS: PULSE 74; RESP 20; O2SAT 97
[2020-01-28] MEDS: amLODIPine BESYLATE 5 MG TABLET PO (09:21)
[2020-01-28] MEDS: POTASSIUM CHLORIDE 20 MEQ TABLET 40 MEQ PO (10:39)
[2020-01-28 14:00] VITALS: BP 124/75; PULSE 81; RESP 18; TEMP 37; O2SAT 97
--- NOTE | 2020-01-28 15:04 | PM.DS ---
DS: Admitting Diagnosis Admitting Diagnosis Admitting Diagnosis: weakness DS: Discharge Diagnosis Discharge Diagnosis (1) Acute UTI: Code(s): N39.0 - Urinary tract infection, site not specified Status: Acute Assessment and Plan: Urine culture grew >100,000 CFU E. coli with susceptibility to Rocephin. She received 2 doses. She will continue PO cefdinir for 5 days to complete a total of 7 days of antibiotic therapy. She remained afebrile and without leukocytosis. (2) Dementia: Qualifiers: Dementia type: Alzheimer's disease Alzheimer's disease onset: late-onset Dementia behavioral disturbance: with behavioral disturbance Qualified Code(s): G30.1 - Alzheimer's disease with late onset; F02.81 - Dementia in other diseases classified elsewhere with behavioral disturbance Code(s): F03.90 - Unspecified dementia without behavioral disturbance Status: Chronic Assessment and Plan: Patient remained A&O x1 and was pleasantly confused, calm, and cooperative. This is her baseline. Recommended avoidance of narcotic use to decrease confusion. Fall precautions were initiated. (3) Closed wedge compression fracture of T12 vertebra: Code(s): S22.080A - Wedge compression fracture of T11-T12 vertebra, initial encounter for closed fracture Status: Acute Assessment and Plan: Patient was seen by orthopedic surgery at prior hospitalization in November 2019 and was fitted for TLSO brace and received therapy at [facility]. She was just discharged home from [facility] a few days prior to presentation. She had no acute issues regarding compression fracture. TLSO brace was applied when out of bed and continued use was encouraged. Pain was controlled with acetaminophen and narcotic use was avoided as above to avoid confusion. Seen by PT and OT and will continue therapy at [facility]. (4) Hypertension: Code(s): I10 - Essential (primary) hypertension Status: Acute Assessment and Plan: Blood pressures at presentation were not at goal in 180s systolic. Amlodipine 5 mg daily was added with improvement in BP. Continue amlodipine and recommended monitoring BP daily at [facility] and recording for review by PCP. (5) Hypokalemia: Code(s): E87.6 - Hypokalemia Status: Acute Assessment and Plan: Probably secondary to poor PO intake. Potassium was replaced and monitored. Initiated on short course of 10 mEq PO potassium daily. Repeat potassium level in 5 days. DS: Summary Hospital Course Reason for hospitalization: Back pain/deconditioning Hospital Course: Date of admission: 01/26/2020 Date of discharge: 01/28/2020 Deepali Haro is an 84 year old female with a history of advanced dementia, hyperlipidemia, and recent hospitalization for T11-T12 wedge compression fracture who presented to the emergency department on 01/26/2020 with complaints of difficulty walking around at home and experiencing generalized weakness. She was recently discharged home from [facility] after about 3 weeks of rehab. At presentation, vital signs stable, afebrile, WBC 6.5, sodium 138, potassium 3.3, UA abnormal with 2+ leuk esterase, and CXR with no acute cardiopulmonary disease. She was admitted to the hospitalist service for further evaluation and management. Please see above for further details. She was treated with IV antibiotics and remained stable. Evaluated by PT/OT and will continue therapy at SNF. Overall, she was feeling well and was felt to no longer require inpatient care. We discussed worrisome signs and symptoms for which to return and medications were discussed with her . She was discharged in hemodynamically stable condition on 01/28/2020. Status at Discharge Functional status at discharge: uses cane/walker Overall status at discharge: patient is progressing back to baseline Time Spent with Patient Time attestation: Total time spent providing and/or coordinating discharge services
== END 2020-01-28 16:30 ==
LOC: ANHED 19:08 → ANH3MED 20:12
PROVIDERS: Admitting Provider Family Medicine; Emergency Provider Emergency Medicine; PCP Internal Medicine; Visit Provider Physician Assistant
DX: N39.0 Urinary tract infection, site not specified (principal); B96.20 Unspecified Escherichia coli [E. coli] as the cause of diseases classified elsewhere; G30.1 Alzheimer's disease with late onset; F02.80 Dementia in other diseases classified elsewhere, unspecified severity, without behavioral disturbance, psychotic disturbance, mood disturbance, and anxiety; S22.080D Wedge compression fracture of T11-T12 vertebra, subsequent encounter for fracture with routine healing; W19.XXXD Unspecified fall, subsequent encounter; I10 Essential (primary) hypertension; E87.6 Hypokalemia; R53.1 Weakness; E78.5 Hyperlipidemia, unspecified; M81.0 Age-related osteoporosis without current pathological fracture; Z95.5 Presence of coronary angioplasty implant and graft; Z20.828 Contact with and (suspected) exposure to other viral communicable diseases
CPT/HCPCS: 36415; 51701; 71045; 80048; 80053; 81001; 85025; 87077; 87086; 87088; 87186; 87635; 93005; 96361; 96365; 96372; 96375; 97161; 97165; 99285; A9270; C9803; G0378; J0696; J2270; J7030; U0003

== ENCOUNTER → 2020-03-07 09:10 | Outpatient (CLI) | payer MEDICARE, SELFPAY ==
--- NOTE | ~2020-03-07 | DEXA_ITS ---
Bone Density Report Name: Deepali Haro Age: 84 Sex: Female Ethnicity: White Date of : 1935 Indication: postmenopausal; screening for osteoporosis; prior fracture; anorexia or bulimia; Referring Provider: REVA HUA Study: Bone densitometry was performed. Exam Date: March 07, 2020 Accession number: [id number] Bone Density: Region BMD T-score Z-score Classification AP Spine (L1-L4) 0.877 -1.5 1.2 Osteopenia Femoral Neck (Left) 0.515 -3.0 -0.6 Osteoporosis Total Hip (Left) 0.597 -2.8 -0.6 Osteoporosis Femoral Neck (Right) 0.506 -3.1 -0.7 Osteoporosis Total Hip (Right) 0.599 -2.8 -0.6 Osteoporosis Total Hip Mean 0.598 -2.8 -0.6 Osteoporosis World Health Organization criteria for BMD impression classify patients as: Normal (T-score at or above -1.0), Osteopenia (T-score between -1.0 and -2.5), or Osteoporosis (T-score at or below -2.5). 10-year Fracture Risk: FRAX not reported because: Some T-score for Spine Total or Hip Total or Femoral Neck at or below -2.5 Prior hip or vertebral fracture Treated for osteopor Clinical Information Provided by Patient: Have had a previous hip or vertebral fracture Has had a low trauma fracture Is being treated for osteoporosis Has used the following medications: Miacalcin (i.e. calcitonin), MTV Has the following medical conditions: Anorexia or Bulimia, Some answers unknown due to memory loss Number of children 2 Impression: The patient has established osteoporosis, based on the Right Femoral Neck T-score and the existence of a prior fracture. The patient has risk factors, including: previous fracture. Discussion: It is important to ask patients whether they are taking their medications and to encourage continued and appropriate compliance with their osteoporosis therapies to reduce fracture risk. It is also important to review their risk factors and encourage appropriate calcium and vitamin D intakes, exercise, fall prevention and other lifestyle measures. Follow-Up: Consider a repeat BMD and Vertebral Fracture Assessment (VFA) exam in 2 years or sooner if medically necessary, to reassess this patient's status. Reported by: HAZEL on 03/07/2020 12:15:00 PM. Reviewed, dictated and finalized at location AYana PIEDRA
== END ==
PROVIDERS: PCP Internal Medicine; Visit Provider Orthopaedic Surgery
DX: M80.08XD Age-related osteoporosis with current pathological fracture, vertebra(e), subsequent encounter for fracture with routine healing (principal); M85.88 Other specified disorders of bone density and structure, other site
CPT/HCPCS: 77080

== ENCOUNTER 2021-08-27 17:51 | Emergency (ER) | payer MEDICARE, SELFPAY ==
[2021-08-27] VITALS (10 sets, daily range): BP systolic 112–155; BP diastolic 58–84; PULSE 68–97; RESP 14–26; TEMP 36.7; O2SAT 96–100
--- NOTE | ~2021-08-27 | CT_ITS ---
EXAMINATION: CT brain wo con DATE: 08/27/2021 18:34 INDICATION: Fall. TECHNIQUE: Computed tomography (CT) of the head was performed without intravenous contrast. Automated exposure control and iterative reconstruction technique were employed. The dose-length product was 6 05.33 mGy-cm. COMPARISON: 12/19/2019. FINDINGS: No acute intracranial hemorrhage or extra-axial fluid collection. No hydrocephalus, mass, or herniation. No acute ischemic infarct. Unremarkable dural venous sinus attenuation. No acute osseous abnormality. The aerated spaces are clear. Severe atrophy and moderate chronic white matter change. Intracranial atherosclerosis. Bilateral lens replacements. IMPRESSION: No acute intracranial process. Reviewed, dictated and finalized at location K.
--- NOTE | 2021-08-27 19:30 | PC.NURSE ---
assumed care of pt. at this time. Report from BARBER Dunn
--- NOTE | 2021-08-27 19:31 | ED.FALL ---
HPI - Fall General Chief Complaint: Fall Stated Complaint: fall from w/c Time Seen by Provider: 08/27/21 17:55 Source: EMS Mode of arrival: EMS Limitations: dementia History of Present Illness HPI Narrative: 86-year-old [facility] resident with a history of dementia was sent in from [facility] with complaints of fall. Patient stated to get out of the wheelchair onto her bed lost her balance and fell. Patient is a poor historian she however she denies any pain no obvious external injuries. complaint: fall Onset (ago): hour(s) (2) Fall from: wheelchair Fall witnessed: yes, by living facility staff Place fall occurred: [facility] Loss of consciousness: none Related Data Home Medications Medication Instructions Recorded Confirmed Complete Multivitamin 1 tablet PO DAILY 12/20/19 01/26/20 Allergies Allergy/AdvReac Type Severity Reaction Status Date / Time Sulfa (Sulfonamide Allergy Mild Unknown Verified 07/15/20 14:18 Antibiotics) simvastatin Allergy Unknown Verified 07/15/20 14:18 sulfanilamide Allergy Unknown Verified 07/15/20 14:18 [place] Allergy Mild Unknown Uncoded 07/15/20 14:18 Review of Systems Review of Systems: ROS unobtainable: Yes unobtainable due to mental status PMFSH Past Medical History Medical History Alzheimer's disease with late onset Closed wedge compression fracture of T12 vertebra Hard of hearing Hyperlipidemia Osteoporosis Surgical History Surgical History History of colonoscopy 2008 that demonstrated hemorrhoids History of coronary artery stent placement With cardiac stent placed in 1998 and 2004 History of dilation and curettage Status post cataract extraction of both eyes with insertion of intraocular lens Family History Family History Mother Dementia CAD (coronary artery disease) Cerebrovascular accident Father CAD (coronary artery disease) Colon cancer Sibling Dementia TIA (transient ischemic attack) Heart attack Mother Cerebrovascular accident Family history of coronary artery disease Father Carcinoma of colon, Onset Age: 74 Family history of coronary artery disease Sibling Family history of seizure disorder Acute myocardial infarction Other Family history of cardiovascular disease Family history of mental disorder Social History Social History Smoking status: Never smoker Alcohol intake: never Substance use: never Substance use type: does not use Additional living arrangements comments: The patient lives at home with her who provides all her cares. 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 Gender identity (if verbalized by the patient): Female Sexual Orientation (if Verbalized by the Patient): Straight or Heterosexual Spiritual care concerns: No Exam Narrative: GENERAL: Well-appearing, well-nourished, and in no acute distress. HEAD: Normocephalic, atraumatic. EYES: PERRLA and EOMI. NECK: Supple. CHEST: Clear to auscultation. No respiratory distress. HEART: Regular rate and rhythm. No murmur heard. Normal peripheral pulses. ABDOMEN: Soft, nontender, nondistended, normal active bowel sounds. EXTREMITIES: Normal range of motion. No edema. SKIN: Warm, dry, no rash. NEURO: No focal deficits. Alert and oriented x1 PSYCH: Normal mood and affect. Course Course Emergency Course: Patient comfortably laying on bed in no discomfort. CT scan was unremarkable. Will send him back to the [facility] with fall precautions. Vital Signs Vital signs: Vital Signs Temperature 36.7 C 08/27/21 17:51 Pulse Rate 69 08/27/21 17:51 Respiratory Rate 16 08/27/21 17:51 Blood Pressure 141/81 H 08/27/21 17:51 Pulse Oximetry 98 08/27/21 17:51 Temp
--- NOTE | 2021-08-27 21:00 | PC.NURSE ---
BARBER Álvarez called report to [facility] staff
== END 2021-08-27 22:30 ==
PROVIDERS: Emergency Provider Family Medicine; PCP Internal Medicine
DX: S09.90XA Unspecified injury of head, initial encounter (principal); G30.1 Alzheimer's disease with late onset; F02.80 Dementia in other diseases classified elsewhere, unspecified severity, without behavioral disturbance, psychotic disturbance, mood disturbance, and anxiety; E78.5 Hyperlipidemia, unspecified; W18.30XA Fall on same level, unspecified, initial encounter
CPT/HCPCS: 70450; 99284

== ENCOUNTER 2021-12-09 09:54 | Emergency (ER) | payer MEDICARE, SELFPAY ==
[2021-12-09] VITALS (18 sets, daily range): BP systolic 126–137; BP diastolic 60–86; PULSE 50–68; RESP 14–21; TEMP 36.6; O2SAT 96–98
--- NOTE | ~2021-12-09 | CT_ITS ---
EXAMINATION: CT brain wo con DATE: 12/09/2021 10:31 INDICATION: Ground-level fall with head injury TECHNIQUE: Computed tomography (CT) of the head was performed without intravenous contrast. Sagittal and coronal reconstructions were performed. The mA was adjusted according to patient size. Iterative reconstruction technique was employed. The dose-length product was 605.33 mGy-cm. COMPARISON: head CT dated 08/27/21 FINDINGS: Small left frontal scalp hematoma. No fracture. No acute intracranial hemorrhage, acute infarction or abnormal extra axial fluid collection. There is moderate scattered white matter hypoattenuation cons istent with chronic small vessel ischemic disease. Symmetric prominence of the sulci and ventricles c onsistent with moderate to severeage-appropriate diffuse cerebral volume loss. No mass/mass effect. C hanges of bilateral intraocular lens replacement. Mild mucosal thickening in the left maxillary and b ilateral ethmoid sinuses. The orbits and mastoid air cells are normal. IMPRESSION: 1. No fracture or acute intracranial process. 2. Age-related changes including moderate to severe volume loss and moderate scattered white matter h ypoattenuation consistent with chronic small vessel disease. Reviewed, dictated and finalized at location A. IMPRESSION: 1. No fracture or acute intracranial process. 2. Age-related changes including moderate to severe volume loss and moderate sc attered white matter hypoattenuation consistent with chronic small vessel disea se.
--- NOTE | ~2021-12-09 | XR_ITS ---
EXAMINATION: XR chest 1V DATE: 12/09/2021 10:38 INDICATION: Altered mental status. TECHNIQUE: A single frontal view of the chest was obtained. COMPARISON: Chest single view 01/26/2020 FINDINGS: Calcified right lung nodules are consistent with old granulomatous disease. There is mild s carring at the lung apices. No pleural effusion or pneumothorax. The heart size is normal. IMPRESSION: 1. Stable mild scarring at the lung apices. Reviewed, dictated and finalized at location A.
--- NOTE | ~2021-12-09 | CT_ITS ---
EXAMINATION: CT cervical spine wo con DATE: 12/09/2021 10:31 INDICATION: Head injury. TECHNIQUE: Computed tomography (CT) of the cervical spine was performed without intravenous contrast. Automated exposure control and iterative reconstruction technique were employed. The dose-length pro duct was 143.26 mGy-cm. COMPARISON: None FINDINGS: There is mild scarring at the lung apices. There is 2 mm anterolisthesis of C3 on C4 and C4 on C5 and 2 mm retrolisthesis of C5 on C6. There is mild chronic anterior wedging of T1 vertebral rut dy. There is mildly decreased disc height at C3-C4 and severely decreased disc height from C4-C5 thro ugh C6-C7. The following disc levels are specifically discussed: C2-C3: There is mild bilateral uncovertebral joint osteoarthritis. There is severe bilateral facet roberto int osteoarthritis. There is mild left neural foraminal stenosis. There is no central canal stenosis. C3-C4: There is moderate bilateral uncovertebral joint osteoarthritis. There is severe bilateral face t joint osteoarthritis. There is mild bilateral neural foraminal stenosis. There is mild central armaan l stenosis. C4-C5: There is severe bilateral uncovertebral joint osteoarthritis. There is severe bilateral facet joint osteoarthritis. There is mild bilateral neural foraminal stenosis. There is mild central canal stenosis. C5-C6: There is severe bilateral uncovertebral joint osteoarthritis. There is mild bilateral facet roberto int osteoarthritis. There is moderate bilateral neural foraminal stenosis. There is mild central armaan l stenosis. C6-C7: There is severe bilateral uncovertebral joint osteoarthritis. There is severe bilateral facet joint osteoarthritis. There is mild bilateral neural foraminal stenosis. There is mild central canal stenosis. C7-T1: There is no uncovertebral joint osteoarthritis. There is severe bilateral facet joint osteoart hritis. There is mild right neural foraminal stenosis. There is no central canal stenosis. IMPRESSION: 1. No fracture. 2. Severe cervical spondylosis. Reviewed, dictated and finalized at location A.
--- NOTE | 2021-12-09 09:55 | PC.NURSE ---
Patient placed on bed alarm.
--- NOTE | 2021-12-09 10:14 | PC.NURSE ---
Spoke to Audra at [facility], patient is usually alert and oriented.
--- NOTE | 2021-12-09 10:17 | ECG_ITS ---
Measurements Intervals [place] Rate: 57 P: -20 WI: 104 QRS: 100 QRSD: 58 T: -1 QT: 377 QTc: 368 Interpretive Statements SINUS BRADYCARDIA WITH SINUS ARRHYTHMIA WITH SHORT WI INTERVAL LEFT ATRIAL ENLARGEMENT RIGHT BUNDLE BRANCH BLOCK BASELINE ARTIFACT- I, II, III, AVR, AVF, V5-V6 ABNORMAL ECG Electronically Signed On 12-09-2021 13:06:17 CDT by Thierry Arreguin D.O.
--- NOTE | 2021-12-09 10:24 | ED.FALL ---
HPI - Fall General Chief Complaint: Fall Stated Complaint: fall, altered mental status Time Seen by Provider: 12/09/21 10:13 History of Present Illness HPI Narrative: 86-year-old female presents the emergency room for evaluation of injury sustained from a ground-level fall. Patient normally resides in a residential, and was found laying on the floor by staff. Staff estimates that she was lying on floor for approximately 15 minutes. Patient is typically alert and oriented x3, presently is alert right x1. Complaining of neck pain and bilateral arm pain. Related Data Home Medications Medication Instructions Recorded Confirmed multivitamin,[id number]-[id number] 1 tablet PO DAILY 12/20/19 01/26/20 (Complete Multivitamin tablet) amlodipine 5 mg tablet (Norvasc) 2.5 mg PO QHS 12/09/21 calcitonin (salmon) 200 12/09/21 unit/actuation nasal spray mirtazapine 7.5 mg tablet mg 12/09/21 Allergies Allergy/AdvReac Type Severity Reaction Status Date / Time Sulfa (Sulfonamide Allergy Mild Unknown Verified 07/15/20 14:18 Antibiotics) simvastatin Allergy Unknown Verified 07/15/20 14:18 sulfanilamide Allergy Unknown Verified 07/15/20 14:18 [place] Allergy Mild Unknown Uncoded 07/15/20 14:18 Review of Systems Review of Systems: CONSTITUTIONAL: Denies fever, chills, or sweats. EYES: Denies visual changes, redness, or discharge. ENT: Denies rhinorrhea, congestion, sore throat, or otalgia. CARDIOVASCULAR: Denies chest pain, palpitations, or edema. RESPIRATORY: Denies cough or dyspnea. GASTROINTESTINAL: Denies abdominal pain, nausea, vomiting, or diarrhea. GENITOURINARY: Denies dysuria or hematuria. SKIN: Denies rash or itching. MUSCULOSKELETAL: Reports neck pain, bilateral upper extremity pain NEUROLOGIC: Denies headache, numbness, dizziness, or weakness. PSYCHIATRIC: Denies anxiety or depression. [facility] Past Medical History Medical History (Updated 12/09/21 @ 12:51 by Dillon Radford APRN) Alzheimer's disease with late onset Closed wedge compression fracture of T12 vertebra Hard of hearing Hyperlipidemia Osteoporosis Surgical History Surgical History History of colonoscopy 2008 that demonstrated hemorrhoids History of coronary artery stent placement With cardiac stent placed in 1998 and 2004 History of dilation and curettage Status post cataract extraction of both eyes with insertion of intraocular lens Family History Family History Mother Dementia CAD (coronary artery disease) Cerebrovascular accident Father CAD (coronary artery disease) Colon cancer Sibling Dementia TIA (transient ischemic attack) Heart attack Mother Cerebrovascular accident Family history of coronary artery disease Father Carcinoma of colon, Onset Age: 74 Family history of coronary artery disease Sibling Family history of seizure disorder Acute myocardial infarction Other Family history of cardiovascular disease Family history of mental disorder Social History Social History Smoking status: Never smoker Alcohol intake: never Substance use: never Substance use type: does not use Additional living arrangements comments: The patient lives at home with her who provides all her cares. 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 Gender identity (if verbalized by the patient): Female Sexual Orientation (if Verbalized by the Patient): Straight or Heterosexual Spiritual care concerns: No Exam Narrative: GENERAL: Well-appearing, well-nourished, no physical limitations, and in no acute distress. HEAD: Normocephalic, hematoma to forehead EYES: Conjunctivae normal, PERRLA and EOMI. ENT: External nose normal, Nares clear, no rhinorrhea or epistaxis. Mucous membranes moist. Oropharynx without tonsil
--- NOTE | 2021-12-09 10:27 | PC.NURSE ---
Patient to radiology.
[2021-12-09 11:35] LABS: Basophils Percent Auto 0.5 % (0.2-1.2); Eosinophils Absolute Auto 0.2 K/mm3 (0-0.3); Eosinophils Percent Auto 3.2 % (0-4.4); Hematocrit 36.8 % (37.0-47.0); Hemoglobin 11.8 g/dL (12.0-15.0); Lymphocytes Absolute Auto 1.88 K/mm3 (0.9-3.2); Lymphocytes Percent Auto 31.6 % (18.3-44.2); Mean Corpuscular HGB Conc 32.1 g/dl (32-36); Mean Corpuscular Hemoglobin 30.2 pg (26-34); Mean Corpuscular Volume 94.1 fl (80-100); Mean Platelet Volume 10.9 fl (7.4-10.4); Monocytes Absolute Auto 0.6 K/mm3 (0.1-0.6); Monocytes Percent Auto 10.4 % (2.6-8.5); Neutrophils Absolute Auto 3.2 K/mm3 (1.3-6.7); Neutrophils Percent Auto 54.3 % (45.5-73.1); Platelet Count Result 254 k/mm3 (150-375); Red Blood Count 3.91 M/mm3 (4.2-5.4); Red Cell Distribution Width 13.4 % (11.5-14.5); White Blood Count 5.9 K/mm3 (4.5-10.0)
[2021-12-09 11:38] LABS: Appearance Urine Clear (Clear); Bilirubin Urine Negative (Negative); Blood Urine Negative (Negative); Color Urine Yellow (Yellow); Glucose Urine UA Negative (Negative); Ketones Urine Negative (Negative); Leukocyte Esterase Ur Negative LEU/UL (Negative); Nitrate Urine Negative (Negative); Protein Urine Negative (Negative); Urobilinogen Urine 0.2 mg/dL (<2.0)
[2021-12-09 11:39] LABS: Add Urine Microscopic? NO
[2021-12-09 11:44] LABS: Alanine Aminotransferase 12 U/L (6-35); Albumin Level 3.6 g/dL (3.5-5.1); Alkaline Phosphatase 88 U/L (38-126); Anion Gap 3 mmol/L (8-16); Aspartate Amino Transferase 23 U/L (14-36); Bilirubin,Total 0.3 mg/dL (0.2-1.3); Blood Urea Nitrogen 10 mg/dL (7-17); Calcium 8.7 mg/dL (8.4-10.2); Carbon Dioxide 31 mmol/L (22-30); Chloride 106 mmol/L (98-107); Estimated Glomerular Filt Rate > 60; Glucose 98 mg/dL (65-110); Lipase 106 U/L (23-300); Potassium 3.5 mmol/L (3.4-5.0); Sodium 140 mmol/L (137-145)
[2021-12-09 11:56] LABS: Troponin I < 0.012 ng/mL (0.000-0.034)
--- NOTE | 2021-12-09 13:16 | PC.NURSE ---
1315 on hold for [facility] staff to give report
--- NOTE | 2021-12-09 13:18 | PC.NURSE ---
Report to Gita Zhu [facility]
== END 2021-12-09 13:47 ==
PROVIDERS: Emergency Provider Nurse Practitioner Family
DX: S09.90XA Unspecified injury of head, initial encounter (principal); G30.1 Alzheimer's disease with late onset; F02.80 Dementia in other diseases classified elsewhere, unspecified severity, without behavioral disturbance, psychotic disturbance, mood disturbance, and anxiety; W19.XXXA Unspecified fall, initial encounter
CPT/HCPCS: 36415; 51701; 70450; 71045; 72125; 80053; 81003; 83690; 84484; 85025; 93005; 99284

== ENCOUNTER 2022-02-21 12:35 | Observation (INO) | payer MEDICARE, SELFPAY ==
[2022-02-21] VITALS (21 sets, daily range): BP systolic 132–162; BP diastolic 68–108; PULSE 76–87; RESP 12–29; TEMP 36.8; O2SAT 95–97
--- NOTE | ~2022-02-21 | US_ITS ---
EXAMINATION:US venous doppler LE BI INDICATION:Positive d-dimer TECHNIQUE: Multiple grayscale, color flow and Doppler images of the right and left lower extremity de ep venous systems were obtained and reviewed. COMPARISON:No prior studies for comparison. FINDINGS: The common femoral, superficial femoral and popliteal veins demonstrate normal respiratory variation, augmentation and compressibility. Color flow is also seen within the posterior tibial, pe roneal, greater saphenous and profunda veins. IMPRESSION: 1: No lower extremity deep venous thrombosis. Reviewed, dictated and finalized at location A.
--- NOTE | ~2022-02-21 | XR_ITS ---
EXAMINATION: XR pelvis 1-2V DATE: 02/21/2022 14:01 INDICATION: Fall. TECHNIQUE: An anteroposterior view of the pelvis was obtained on 2 radiographs. COMPARISON: Pelvis radiograph 08/07/2015 FINDINGS: There is lumbar dextroscoliosis and severe spondylosis. No fracture. There is moderate oste oarthritis of the hips. IMPRESSION: 1. Moderate osteoarthritis of the hips. Reviewed, dictated and finalized at location A.
--- NOTE | ~2022-02-21 | XR_ITS ---
EXAMINATION: XR chest 1V portable DATE: 02/21/2022 14:01 INDICATION: Altered mental status. Fall. TECHNIQUE: A single frontal view of the chest was obtained. COMPARISON: Chest single view 12/09/2021, thoracic spine CT 12/19/2019 FINDINGS: There is mild scarring at the lung apices. There is mild atelectasis at the lung bases. No pleural effusion or pneumothorax without size is normal. There is a moderate-sized hiatal hernia. IMPRESSION: 1. Mild atelectasis at the lung bases. 2. Stable mild scarring at the lung apices. 3. Moderate-sized hiatal hernia. Reviewed, dictated and finalized at location A.
--- NOTE | ~2022-02-21 | CT_ITS ---
EXAMINATION: CT brain wo con DATE: 02/21/2022 13:11 INDICATION: Head injury. TECHNIQUE: Computed tomography (CT) of the head was performed without intravenous contrast. The mA wa s adjusted according to patient size. Iterative reconstruction technique was employed. The dose-lengt h product was 1135.00 mGy-cm. COMPARISON: Head CT 12/09/2021, brain MRI 06/13/2015 FINDINGS: Motion artifact is noted. There are scattered areas of low attenuation in the cerebral whit e matter. There is diffuse brain volume loss. There is no intracranial hemorrhage, acute infarction, or abnormal intracranial mass lesion. The ventricles are normal in size. There is mild mucosal thicke scar in the ethmoid sinuses. The mastoid air cells are normal. There are likely changes of ocular toshia s replacement surgeries. IMPRESSION: 1. Stable extensive nonspecific cerebral white matter disease, which likely represents chronic small vessel ischemic disease. Reviewed, dictated and finalized at location A. IMPRESSION: 1. Stable extensive nonspecific cerebral white matter disease, which likely rep resents chronic small vessel ischemic disease.
--- NOTE | ~2022-02-21 | CT_ITS ---
EXAMINATION: CT cervical spine wo con DATE: 02/21/2022 13:11 INDICATION: Head injury. TECHNIQUE: Computed tomography (CT) of the cervical spine was performed without intravenous contrast. Automated exposure control and iterative reconstruction technique were employed. The dose-length pro duct was 148.60 mGy-cm. COMPARISON: None FINDINGS: There is mild scarring at the lung apices. There is 2 mm anterolisthesis of C3 on C4 and C4 on C5 and 2 mm retrolisthesis of C5 on C6. There is mild chronic anterior wedging of T1 vertebral rut dy. There is mildly decreased disc height at C3-C4 and severely decreased disc height from C4-C5 thro ugh C6-C7. The following disc levels are specifically discussed: C2-C3: There is mild left uncovertebral joint osteoarthritis. There is severe bilateral facet joint o steoarthritis. There is no neural foraminal stenosis. There is no central canal stenosis. C3-C4: There is severe bilateral uncovertebral joint osteoarthritis. There is severe bilateral facet joint osteoarthritis. There is mild left neural foraminal stenosis. There is no central canal stenosi s. C4-C5: There is severe bilateral uncovertebral joint osteoarthritis. There is severe bilateral facet joint osteoarthritis. There is moderate right and mild left neural foraminal stenosis. There is mild central canal stenosis. C5-C6: There is severe bilateral uncovertebral joint osteoarthritis. There is mild bilateral facet roberto int osteoarthritis. There is moderate bilateral neural foraminal stenosis. There is mild central armaan l stenosis. C6-C7: There is severe bilateral uncovertebral joint osteoarthritis. There is severe bilateral facet joint osteoarthritis. There is mild bilateral neural foraminal stenosis. There is mild central canal stenosis. C7-T1: There is no uncovertebral joint osteoarthritis. There is severe right and moderate left facet joint osteoarthritis. There is mild bilateral neural foraminal stenosis. There is no central canal st enosis. IMPRESSION: 1. No fracture. 2. Severe cervical spondylosis. Reviewed, dictated and finalized at location A.
--- NOTE | 2022-02-21 13:14 | ECG_ITS ---
Measurements Intervals [place] Rate: 74 P: 59 SD: 247 QRS: -28 QRSD: 154 T: -14 QT: 434 QTc: 483 Interpretive Statements SINUS RHYTHM WITH SINUS ARRHYTHMIA WITH FIRST DEGREE AV BLOCK RIGHT BUNDLE BRANCH BLOCK BASELINE ARTIFIACT PRESENT COMPARED TO ECG 12/09/2021 10:47:42 NO SIGNIFICANT CHANGES Electronically Signed On 02-22-2022 17:22:10 CDT by Nery Ozuna M.D.
[2022-02-21 13:38] LABS: Basophils Percent Auto 0.2 % (0.2-1.2); Eosinophils Percent Auto 0.1 % (0-4.4); Hematocrit 39.6 % (37.0-47.0); Hemoglobin 13.1 g/dL (12.0-15.0); Immature Granulocyte Absolute 0.03 K/mm3 (0.00-0.031); Immature Granulocyte Percent A 0.3 % (0-0.5); Lymphocytes Absolute Auto 1.29 K/mm3 (0.9-3.2); Lymphocytes Percent Auto 13.3 % (18.3-44.2); Mean Corpuscular HGB Conc 33.1 g/dl (32-36); Mean Corpuscular Hemoglobin 30.9 pg (26-34); Mean Corpuscular Volume 93.4 fl (80-100); Mean Platelet Volume 10.8 fl (7.4-10.4); Monocytes Absolute Auto 0.6 K/mm3 (0.1-0.6); Monocytes Percent Auto 6.3 % (2.6-8.5); Neutrophils Absolute Auto 7.7 K/mm3 (1.3-6.7); Neutrophils Percent Auto 79.8 % (45.5-73.1); Platelet Count Result 241 k/mm3 (150-375); Red Blood Count 4.24 M/mm3 (4.2-5.4); White Blood Count 9.7 K/mm3 (4.5-10.0)
[2022-02-21 13:51] LABS: Alanine Aminotransferase 19 U/L (6-35); Albumin Level 4.2 g/dL (3.5-5.1); Alkaline Phosphatase 113 U/L (38-126); Anion Gap 7 mmol/L (8-16); Aspartate Amino Transferase 34 U/L (14-36); Bilirubin,Total 0.6 mg/dL (0.2-1.3); Blood Urea Nitrogen 15 mg/dL (7-17); Carbon Dioxide 26 mmol/L (22-30); Chloride 105 mmol/L (98-107); Estimated Glomerular Filt Rate > 60; Glucose 121 mg/dL (65-110); Lipase 155 U/L (23-300); Magnesium 2.1 mg/dL (1.6-2.3); Potassium 4.1 mmol/L (3.4-5.0); Sodium 138 mmol/L (137-145)
[2022-02-21 13:58] LABS: Prothrombin Time 13.2 Seconds (11.1-14.7)
[2022-02-21 13:59] LABS: Partial Thromboplastin Time 32.1 SECONDS (22.3-36.8)
[2022-02-21 14:00] LABS: NT Pro B Type Natriuretic Pept 201 pg/mL (5-100)
[2022-02-21 14:02] LABS: Troponin I < 0.012 ng/mL (0.000-0.034)
[2022-02-21 14:24] LABS: Appearance Urine Cloudy (Clear); Bilirubin Urine 1+ (Negative); Blood Urine Trace-lysed (Negative); Color Urine Yellow (Yellow); Glucose Urine UA Negative (Negative); Ketones Urine 3+ mg/dL (Negative); Leukocyte Esterase Ur 1+ LEU/UL (Negative); Nitrate Urine Negative (Negative); Protein Urine Trace mg/dL (Negative); Specific Grav Ur 1.025 (1.001-1.035); Urobilinogen Urine 0.2 mg/dL (<2.0)
[2022-02-21 14:27] LABS: Bacteria Urine Trace /hpf; Mucus Urine Few /lpf; Squamous Epithelial Cell Urine Occasional /hpf (Few); WBC Urine 21-30 /hpf
[2022-02-21 14:30] LABS: Add Urine Microscopic? YES
--- NOTE | 2022-02-21 15:34 | PC.NURSE ---
andre benítez- daughter [phone]- call with any questions
[2022-02-21 17:19] LABS: Troponin I < 0.012 ng/mL (0.000-0.034)
--- NOTE | 2022-02-21 18:02 | PC.NURSE ---
pt is currently A&O 0; pt does not respond to her name. Pt does not respond or stir when gently touched. There was no one with pt upon arrival to the unit. Admission information was pulled from previous visits in November and August as well as past medical records.
--- NOTE | 2022-02-21 22:01 | PM.IMHP ---
H&P: HPI History of Present Illness Date/Time: 02/21/22 22:01 Chief Complaint: fell out of chair Narrative: this is a 86-year-old female patient who came from live in the [facility]. The patient is wheelchair-bound and fell out of her wheelchair and landed on her face. The patient has a forehead laceration. She has had multiple falls in the past. She does have a history of dementia. She comes to us from [facility]. She had a head CT today that shows stable extensive nonspecific cerebral white matter disease, most likely represents chronic small vessel ischemic disease. Cervical spine CT was read as no fracture. Severe cervical spondylosis. Chest x-ray was read as mild atelectasis at the lung bases. Stable mild scarring at the lung apices. Moderate size hiatal hernia. Pelvis x-ray was read as moderate osteoarthritis of the hips. Troponins were negative. The patient received approximately 5 sutures to the top of her forehead. The patient was found have a urinary tract infection and was started on Rocephin. The patient is being admitted to inpatient status on the date of service of 02/21/2022. Review of Systems Review of Systems: The patient is nonverbal and is not able to answer questions at this time. All systems reviewed & are unremarkable except as noted in HPI and below Constitutional: Constitutional: Reports as per HPI and Reports no additional constitutional complaints Eyes: Eyes: Reports as per HPI and Reports no additional eye complaints ENT: Reports system reviewed and no additional complaints, except as documented and Reports Normal hearing present Cardiovascular: Cardiovascular: Reports no additional cardiovascular complaints Respiratory: Respiratory: Reports no additional respiratory complaints and Reports no additional respiratory complaints Gastrointestinal: Gastrointestinal: Reports as per HPI and Reports no additional gastrointestinal complaints Musculoskeletal: Musculoskeletal: Reports no additional musculoskeletal complaints Integumentary/Breasts: Skin/Breast: Reports system reviewed and no additional complaints, except as docu and Reports as per HPI Neurologic: Reports system reviewed and no additional complaints, except as documented, Reports as per HPI and Reports Normal hearing present Psychiatric: Psychiatric: Reports no additional psychiatric complaints and Reports as per HPI Endocrine: Endocrine: Reports no additional endocrine complaints Hematologic/Lymphatic: Hematologic/Lymphatic: Reports no additional hematologic/lymphatic complaints Allergic/Immunologic: Allergic/Immunologic: Reports no additional allergic/immunologic complaints [facility] Past Medical History Medical History (Updated 02/21/22 @ 22:26 by Mona Goncalves NP) Alzheimer's disease with late onset Anxiety Closed wedge compression fracture of T12 vertebra Hard of hearing Hyperlipidemia Iron deficiency anemia Osteoporosis Surgical History Surgical History History of colonoscopy 2008 that demonstrated hemorrhoids History of coronary artery stent placement With cardiac stent placed in 1998 and 2004 History of dilation and curettage Status post cataract extraction of both eyes with insertion of intraocular lens Family History Family History Mother Dementia CAD (coronary artery disease) Cerebrovascular accident Father CAD (coronary artery disease) Colon cancer Sibling Dementia TIA (transient ischemic attack) Heart attack Mother Cerebrovascular accident Family history of coronary artery disease Father Carcinoma of colon, Onset Age: 74 Family history of coronary artery disease Sibling Family history of seizure disorder Acute myocardial infarction Other Family history of cardiovascular disease Family history of mental disorder Social History Social History (Updated 02/21/22 @
--- NOTE | 2022-02-21 22:45 | ED.GENADULT ---
HPI - General Adult General Chief complaint: Head Injury Stated complaint: fall/head injuryone sided weakness Time Seen by Provider: 02/21/22 13:09 History of Present Illness HPI narrative: This is an 86-year-old female presenting to ED with a chief complaint of altered mental status. The patient has severe dementia and lives at [facility] in the dementia and[place]. She had a fall forward off of her wheelchair and struck her forehead and has a stellate laceration. Patient is unable to provide any information at this time. Patient's daughter is at bedside he says she visits with her mother quite frequently and noticed that she has been more confused than usual lately. She has not been eating well. She has not voiced any complaints to the daughter. Related Data Home Medications Medication Instructions Recorded Confirmed multivitamin,rv-gqia-redgdxxx 1 tablet PO DAILY 12/20/19 02/21/22 (Complete Multivitamin tablet) amlodipine 5 mg tablet (Norvasc) 2.5 mg PO QHS 12/09/21 02/21/22 calcitonin (salmon) 200 1 spray intranasal DAILY 12/09/21 02/21/22 unit/actuation nasal spray mirtazapine 7.5 mg tablet 7.5 mg PO DAILY 12/09/21 02/21/22 aspirin 81 mg tablet 81 mg PO DAILY 02/21/22 02/21/22 aacornhdd-xywN-weeiswm-FOS-bromelain 30 ml PO DAILY 02/21/22 02/21/22 1,937 mg-188 mg/15 mL oral liquid docusate sodium 100 mg capsule 100 mg PO DAILY 02/21/22 02/21/22 ferrous sulfate 325 mg (65 mg 325 mg PO DAILY 02/21/22 02/21/22 iron) tablet (Iron (ferrous sulfate)) memantine 5 mg tablet 5 mg PO BID 02/21/22 02/21/22 Allergies Allergy/AdvReac Type Severity Reaction Status Date / Time Sulfa (Sulfonamide Allergy Mild Unknown Verified 07/15/20 14:18 Antibiotics) simvastatin Allergy Unknown Verified 07/15/20 14:18 sulfanilamide Allergy Unknown Verified 07/15/20 14:18 Pino Allergy Mild Unknown Uncoded 07/15/20 14:18 Review of Systems Review of Systems: ROS unobtainable: Yes unobtainable due to medical condition PMFSH Past Medical History Medical History (Updated 02/21/22 @ 22:53 by Alex Coe MD) Alzheimer's disease with late onset Anxiety Closed wedge compression fracture of T12 vertebra Hard of hearing Hyperlipidemia Iron deficiency anemia Osteoporosis Surgical History Surgical History History of colonoscopy 2008 that demonstrated hemorrhoids History of coronary artery stent placement With cardiac stent placed in 1998 and 2004 History of dilation and curettage Status post cataract extraction of both eyes with insertion of intraocular lens Family History Family History Mother Dementia CAD (coronary artery disease) Cerebrovascular accident Father CAD (coronary artery disease) Colon cancer Sibling Dementia TIA (transient ischemic attack) Heart attack Mother Cerebrovascular accident Family history of coronary artery disease Father Carcinoma of colon, Onset Age: 74 Family history of coronary artery disease Sibling Family history of seizure disorder Acute myocardial infarction Other Family history of cardiovascular disease Family history of mental disorder Social History Social History (Updated 02/21/22 @ 22:12 by Mona Goncalves NP) Social History: the patient is and lives at [facility]. She is retired. She has a daughter Christi and does son Rcik listed in her contacts. She has fili Lopez listed as her spouse. 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 Gender identity (if verbalized by the patient): Female Sexual Orientation (if Verbalized by the Patient): Straight or Heterosexual Spiritual care concerns: No Exam Narrative: APPEARANCE: Patient is
[2022-02-21] MEDS: amLODIPine BESYLATE 2.5 MG TABLET PO (23:39)
[2022-02-21] MEDS: MEMANTINE 5 MG TABLET PO (23:40)
[2022-02-22 05:16] VITALS: BP 122/90; PULSE 43; RESP 16; TEMP 36.8; O2SAT 82
[2022-02-22 05:51] LABS: Basophils Absolute Auto 0.1 K/mm3 (0.0-0.1); Basophils Percent Auto 0.8 % (0.2-1.2); Eosinophils Absolute Auto 0.2 K/mm3 (0-0.3); Eosinophils Percent Auto 2.9 % (0-4.4); Hematocrit 34.7 % (37.0-47.0); Hemoglobin 11.5 g/dL (12.0-15.0); Immature Granulocyte Absolute 0.03 K/mm3 (0.00-0.031); Immature Granulocyte Percent A 0.5 % (0-0.5); Lymphocytes Absolute Auto 1.88 K/mm3 (0.9-3.2); Lymphocytes Percent Auto 28.7 % (18.3-44.2); Mean Corpuscular HGB Conc 33.1 g/dl (32-36); Mean Corpuscular Hemoglobin 30.7 pg (26-34); Mean Corpuscular Volume 92.8 fl (80-100); Monocytes Absolute Auto 0.6 K/mm3 (0.1-0.6); Monocytes Percent Auto 9.8 % (2.6-8.5); Neutrophils Absolute Auto 3.8 K/mm3 (1.3-6.7); Neutrophils Percent Auto 57.3 % (45.5-73.1); Platelet Count Result 200 k/mm3 (150-375); Red Blood Count 3.74 M/mm3 (4.2-5.4); Red Cell Distribution Width 12.9 % (11.5-14.5); White Blood Count 6.6 K/mm3 (4.5-10.0)
[2022-02-22 06:04] LABS: D Dimer 2.88 ug/mL (<0.48)
[2022-02-22 06:11] LABS: Alanine Aminotransferase 18 U/L (6-35); Albumin Level 3.5 g/dL (3.5-5.1); Alkaline Phosphatase 93 U/L (38-126); Anion Gap 8 mmol/L (8-16); Aspartate Amino Transferase 36 U/L (14-36); Blood Urea Nitrogen 16 mg/dL (7-17); Calcium 8.4 mg/dL (8.4-10.2); Carbon Dioxide 23 mmol/L (22-30); Chloride 106 mmol/L (98-107); Estimated Glomerular Filt Rate > 60; Glucose 100 mg/dL (65-110); Lactate Dehydrogenase 222 U/L (120-246); Lipase 113 U/L (23-300); Magnesium 1.9 mg/dL (1.6-2.3); Potassium 3.5 mmol/L (3.4-5.0); Sodium 137 mmol/L (137-145)
[2022-02-22 06:23] LABS: Lactic Acid Reflex 0.9 mmol/L (0.7-2.0)
[2022-02-22] MEDS: FERROUS SULFATE 324 MG TABLET PO (09:19)
[2022-02-22] MEDS: MEMANTINE 5 MG TABLET PO ×2 (09:19→21:05)
[2022-02-22] MEDS: DOCUSATE SODIUM 100 MG CAPSULE PO (09:19)
[2022-02-22] MEDS: ASPIRIN 81 MG ENTERIC TABLET PO (09:19)
[2022-02-22] MEDS: CALCITONIN NASAL 200 UNITS/SPRAY 3.7 ML BOTTLE 1 SPRAY NASAL (09:20)
[2022-02-22] MEDS: THERAPEUTIC MULTIVITAMINS/MINERALS TAB (*BKC) 1 TABLET PO (09:20)
[2022-02-22] MEDS: MIRTAZAPINE 7.5 MG TABLET PO (09:20)
[2022-02-22 12:33] LABS: Free T4 Free Thyroxine Reflex 1.07 ng/dL (0.78-2.19)
[2022-02-22 13:49] LABS: Total Triiodothyronine (T3) 1.18 NG/ML (0.97-1.69)
[2022-02-22 14:00] VITALS: BP 115/62; PULSE 66; RESP 20; TEMP 36.6; O2SAT 96
--- NOTE | 2022-02-22 15:51 | PM.IMPN ---
Progress Note: A&P Assessment and Plan (1) Acute UTI: Code(s): N39.0 - Urinary tract infection, site not specified Status: Acute Assessment and Plan: UA with 1+ leukocytes, WBC 21-30 noted. Continue Rocephin 1 gram Q24 hours, started 02/21/22 blood and urine cultures pending. (2) Head trauma: Qualifiers: Encounter type: initial encounter Qualified Code(s): S09.90XA - Unspecified injury of head, initial encounter Code(s): S09.90XA - Unspecified injury of head, initial encounter Status: Acute Assessment and Plan: s/p fall. The patient received sutures in the emergency room. head CT negative for acute finding. CT cervical spine without fracture Monitor neuro (3) Hypertension: Qualifiers: Hypertension type: primary hypertension Qualified Code(s): I10 - Essential (primary) hypertension Code(s): I10 - Essential (primary) hypertension Status: Chronic Assessment and Plan: Chronic, stable. Continue with Norvasc (4) Dementia: Qualifiers: Dementia type: Alzheimer's Alzheimer's disease onset: unspecified onset Dementia severity: severe Dementia behavioral or psychological symptom: without behavioral, psychotic, or mood disturbance or anxiety Qualified Code(s): G30.9 - Alzheimer's disease, unspecified; F02.C0 - Dementia in other diseases classified elsewhere, severe, without behavioral disturbance, psychotic disturbance, mood disturbance, and anxiety Code(s): F03.90 - Unspecified dementia, unspecified severity, without behavioral disturbance, psychotic disturbance, mood disturbance, and anxiety Status: Chronic Assessment and Plan: Chronic, stable continue with Namenda and HS mirtazapine (5) Closed wedge compression fracture of T12 vertebra: Code(s): S22.080A - Wedge compression fracture of T11-T12 vertebra, initial encounter for closed fracture Status: Chronic Assessment and Plan: p.r.n. Tylenol (6) Iron deficiency anemia: Code(s): D50.9 - Iron deficiency anemia, unspecified Status: Acute Assessment and Plan: Chronic, stable. On iron supplement (7) Elevated d-dimer: Code(s): R79.89 - Other specified abnormal findings of blood chemistry Status: Acute Assessment and Plan: D-dimer drawn post fall and elevated 2.88. Patient is not hypoxic, no tachycardia or hypotension. LE without edema. Likely elevated secondary to fall and head laceration. Will check BLE venous doppler, Wells score for DVT 1, moderate risk. Wells score PE 1.5 low risk. (8) Falls frequently: Code(s): R29.6 - Repeated falls Status: Acute Assessment and Plan: Patient is wheelchair bound. TSH elevated, Total T3 and free T4 normal. Check B12, folate and vitamin D levels. UA ordered and pending. (9) Elevated TSH: Code(s): R79.89 - Other specified abnormal findings of blood chemistry Status: Acute Assessment and Plan: TSH 5.2, free T41.04, Total T3 1.18. She is not on thyroid supplement. Repeat thyroid panel in 4-6 weeks. Plan CODE STATUS: DNR Disposition: from home with spouse. Time Spent With Patient Time with patient: 15 - 25 minutes Subjective Date/time seen: 02/22/22 15:51 Interval history: Patient found lying in bed sleeping. She opens eyes to voice, but does not answer most questions. Nursing notes reviewed and no overnight events noted. Patient is afebrile. Review of Systems Review of Systems: ROS unobtainable: Yes unobtainable due to mental status Exam Narrative: General:?No distress. Nontoxic appearing. Lying in bed. HEENT:?Normocephalic. Frontal laceration CARLYN with sutures, no drainage. Pupils round and equal. Sclera anicteric. Oral mucosa moist.?EGEGIK. Neck:??Supple. Thyroid without nodularity. No JVD. Respiratory:?RR unlabored at rest. Lungs sounds clear bilate
--- NOTE | 2022-02-22 17:23 | PC.NURSE ---
I received a message that pt's daughter, Christi, called wanting an update on pt. I returned pt's call as the first available opportunity. Christi informed me that Dayna had already spoken to her. She then proceeded to scold me for not answering her call immediately. I attempted to explain to her that I was in a patient's room providing care to that patient and returned her call at the first available opportunity. Christi then demanded to know why she was not being given continuous antibiotics or the two shots in the hips that cure it immediately. I attempted to answer her questions, but Christi would not permit me to complete a sentence. Christi then informed me that the patient was miserable and clearly in excruciating pain and demanded to know why I wasn't addressing her pain. Christi has not seen the patient. Christi was not present upon admission, nor has Christi visited the patient at any time. No one was with the patient in the ED, no one was with the patient at admission, and no one has visited the patient at any time. The patient has been peacefully sleeping except when awakened to eat and give meds. The patient has been resting comfortably with no signs or symptoms of discomfort of any kind. Patient has been closely monitored and kept clean and dry. I informed Christi of these facts and expressed doubt regarding the veracity and validity of Christi's assertions and allegations. Christi's replied, oh. ok then. I will call tomorrow and will continue to monitor her from here.
[2022-02-22 22:00] VITALS: BP 114/57; PULSE 63; RESP 18; TEMP 36.6; O2SAT 97
[2022-02-23 06:00] VITALS: BP 126/55; PULSE 62; RESP 18; TEMP 36.4; O2SAT 100
[2022-02-23 06:30] LABS: Basophils Percent Auto 0.6 % (0.2-1.2); Eosinophils Absolute Auto 0.4 K/mm3 (0-0.3); Eosinophils Percent Auto 5.5 % (0-4.4); Hematocrit 35.7 % (37.0-47.0); Immature Granulocyte Absolute 0.02 K/mm3 (0.00-0.031); Immature Granulocyte Percent A 0.3 % (0-0.5); Lymphocytes Absolute Auto 1.55 K/mm3 (0.9-3.2); Lymphocytes Percent Auto 22.9 % (18.3-44.2); Mean Corpuscular HGB Conc 33.6 g/dl (32-36); Mean Corpuscular Hemoglobin 30.4 pg (26-34); Mean Corpuscular Volume 90.4 fl (80-100); Monocytes Absolute Auto 0.7 K/mm3 (0.1-0.6); Monocytes Percent Auto 9.9 % (2.6-8.5); Neutrophils Absolute Auto 4.1 K/mm3 (1.3-6.7); Neutrophils Percent Auto 60.8 % (45.5-73.1); Platelet Count Result 212 k/mm3 (150-375); Red Blood Count 3.95 M/mm3 (4.2-5.4); Red Cell Distribution Width 12.7 % (11.5-14.5); White Blood Count 6.8 K/mm3 (4.5-10.0)
[2022-02-23 07:02] LABS: Alanine Aminotransferase 19 U/L (6-35); Albumin Level 3.6 g/dL (3.5-5.1); Alkaline Phosphatase 93 U/L (38-126); Anion Gap 9 mmol/L (8-16); Aspartate Amino Transferase 35 U/L (14-36); Bilirubin,Total 0.8 mg/dL (0.2-1.3); Blood Urea Nitrogen 17 mg/dL (7-17); Calcium 8.3 mg/dL (8.4-10.2); Carbon Dioxide 23 mmol/L (22-30); Chloride 106 mmol/L (98-107); Estimated Glomerular Filt Rate > 60; Glucose 95 mg/dL (65-110); Potassium 3.3 mmol/L (3.4-5.0); Sodium 138 mmol/L (137-145)
[2022-02-23 07:52] LABS: Folic Acid > 20.0 ng/mL (2.76->20)
[2022-02-23 07:53] LABS: Vitamin D 25 Hydroxy 32.7 ng/mL
[2022-02-23] MEDS: DOCUSATE SODIUM 100 MG CAPSULE PO (08:08)
[2022-02-23] MEDS: MIRTAZAPINE 7.5 MG TABLET PO (08:08)
[2022-02-23] MEDS: ASPIRIN 81 MG ENTERIC TABLET PO (08:08)
[2022-02-23] MEDS: FERROUS SULFATE 324 MG TABLET PO (08:08)
[2022-02-23] MEDS: CALCITONIN NASAL 200 UNITS/SPRAY 3.7 ML BOTTLE 1 SPRAY NASAL (08:08)
[2022-02-23] MEDS: THERAPEUTIC MULTIVITAMINS/MINERALS TAB (*BKC) 1 TABLET PO (08:08)
[2022-02-23] MEDS: MEMANTINE 5 MG TABLET PO (08:09)
[2022-02-23] MEDS: CHOLECALCIFEROL 1,000 UNITS TABLET 2000 UNITS PO (10:53)
[2022-02-23] MEDS: AMOXICILLIN 500 MG CAPSULE PO (10:53)
[2022-02-23 11:17] LABS: EDCOVIDSCREEN Negative (Negative)
--- NOTE | 2022-02-23 13:16 | P.DS_ITS ---
DS: Admitting Diagnosis Discharge Date 02/23/2022 1316 Admitting Diagnosis Acute UTI Head laceration/trauma Fall DS: Discharge Diagnosis Discharge Diagnosis (1) Acute UTI: Code(s): N39.0 - Urinary tract infection, site not specified Status: Acute Assessment and Plan: UA with 1+ leukocytes, WBC 21-30 noted. * Treated with Rocephin 1 gram Q24 hours, started 02/21-02/22/22, * blood negative and urine culture shows Vancomycin resistant enterococcus * changed to amoxicillin 500 mg PO Q8 hours x 7 days. (2) VRE (vancomycin resistant enterococcus) culture positive: Code(s): Z22.39 - Carrier of other specified bacterial diseases Status: Acute (3) Head trauma: Qualifiers: Encounter type: initial encounter Qualified Code(s): S09.90XA - Unspecified injury of head, initial encounter Code(s): S09.90XA - Unspecified injury of head, initial encounter Status: Acute Assessment and Plan: s/p fall. The patient received sutures in the emergency room. * head CT negative for acute finding. * CT cervical spine without fracture * nonabsorbable sutures placed to forehead laceration in ED 02/21/22, can be removed 5-7 days later. (4) Elevated d-dimer: Code(s): R79.89 - Other specified abnormal findings of blood chemistry Status: Acute Assessment and Plan: D-dimer drawn post fall and elevated 2.88. Patient is not hypoxic, no tachycardia or hypotension. LE without edema. * Likely elevated secondary to fall and head laceration. * Wells score for DVT 1, moderate risk. Wells score PE 1.5 low risk. * BLE venous doppler negative for DVT (5) Hypertension: Qualifiers: Hypertension type: primary hypertension Qualified Code(s): I10 - Essential (primary) hypertension Code(s): I10 - Essential (primary) hypertension Status: Chronic Assessment and Plan: Chronic, stable. * Continue with Norvasc (6) Dementia: Qualifiers: Alzheimer's disease onset: unspecified onset Dementia behavioral or psychological symptom: without behavioral, psychotic, or mood disturbance or anxiety Dementia severity: severe Dementia type: Alzheimer's Qualified Code(s): G30.9 - Alzheimer's disease, unspecified; F02.C0 - Dementia in other di seases classified elsewhere, severe, without behavioral disturbance, psychotic disturbance, mood disturbance, and anxiety Code(s): F03.90 - Unspecified dementia, unspecified severity, without behavioral disturbance, psychotic disturbance, mood disturbance, and anxiety Status: Chronic Assessment and Plan: Chronic, stable * continue with Namenda and HS mirtazapine (7) Closed wedge compression fracture of T12 vertebra: Code(s): S22.080A - Wedge compression fracture of T11-T12 vertebra, initial encounter for closed fracture Status: Chronic Assessment and Plan: Chronic, p.r.n. Tylenol (8) Iron deficiency anemia: Code(s): D50.9 - Iron deficiency anemia, unspecified Status: Chronic Assessment and Plan: Chronic, stable. * On iron supplement * H/H stable. (9) Falls frequently: Code(s): R29.6 - Repeated falls Status: Acute Assessment and Plan: Patient is wheelchair bound. * TSH elevated, Total T3 and free T4 normal. * B12 and folate within normal limits. * vitamin D levels 32.7- start vitamin D supplement 2000 IU daily * UA and culture as above. (10) Elevated TSH:
--- NOTE | 2022-02-23 13:16 | PM.DS ---
DS: Admitting Diagnosis Discharge Date 02/23/2022 1316 Admitting Diagnosis Acute UTI Head laceration/trauma Fall DS: Discharge Diagnosis Discharge Diagnosis (1) Acute UTI: Code(s): N39.0 - Urinary tract infection, site not specified Status: Acute Assessment and Plan: UA with 1+ leukocytes, WBC 21-30 noted. Treated with Rocephin 1 gram Q24 hours, started 02/21-02/22/22, blood negative and urine culture shows Vancomycin resistant enterococcus changed to amoxicillin 500 mg PO Q8 hours x 7 days. (2) VRE (vancomycin resistant enterococcus) culture positive: Code(s): Z22.39 - Carrier of other specified bacterial diseases Status: Acute (3) Head trauma: Qualifiers: Encounter type: initial encounter Qualified Code(s): S09.90XA - Unspecified injury of head, initial encounter Code(s): S09.90XA - Unspecified injury of head, initial encounter Status: Acute Assessment and Plan: s/p fall. The patient received sutures in the emergency room. head CT negative for acute finding. CT cervical spine without fracture nonabsorbable sutures placed to forehead laceration in ED 02/21/22, can be removed 5-7 days later. (4) Elevated d-dimer: Code(s): R79.89 - Other specified abnormal findings of blood chemistry Status: Acute Assessment and Plan: D-dimer drawn post fall and elevated 2.88. Patient is not hypoxic, no tachycardia or hypotension. LE without edema. Likely elevated secondary to fall and head laceration. Wells score for DVT 1, moderate risk. Wells score PE 1.5 low risk. BLE venous doppler negative for DVT (5) Hypertension: Qualifiers: Hypertension type: primary hypertension Qualified Code(s): I10 - Essential (primary) hypertension Code(s): I10 - Essential (primary) hypertension Status: Chronic Assessment and Plan: Chronic, stable. Continue with Norvasc (6) Dementia: Qualifiers: Alzheimer's disease onset: unspecified onset Dementia behavioral or psychological symptom: without behavioral, psychotic, or mood disturbance or anxiety Dementia severity: severe Dementia type: Alzheimer's Qualified Code(s): G30.9 - Alzheimer's disease, unspecified; F02.C0 - Dementia in other diseases classified elsewhere, severe, without behavioral disturbance, psychotic disturbance, mood disturbance, and anxiety Code(s): F03.90 - Unspecified dementia, unspecified severity, without behavioral disturbance, psychotic disturbance, mood disturbance, and anxiety Status: Chronic Assessment and Plan: Chronic, stable continue with Namenda and HS mirtazapine (7) Closed wedge compression fracture of T12 vertebra: Code(s): S22.080A - Wedge compression fracture of T11-T12 vertebra, initial encounter for closed fracture Status: Chronic Assessment and Plan: Chronic, p.r.n. Tylenol (8) Iron deficiency anemia: Code(s): D50.9 - Iron deficiency anemia, unspecified Status: Chronic Assessment and Plan: Chronic, stable. On iron supplement H/H stable. (9) Falls frequently: Code(s): R29.6 - Repeated falls Status: Acute Assessment and Plan: Patient is wheelchair bound. TSH elevated, Total T3 and free T4 normal. B12 and folate within normal limits. vitamin D levels 32.7- start vitamin D supplement 2000 IU daily UA and culture as above. (10) Elevated TSH: Code(s): R79.89 - Other specified abnormal findings of blood chemistry Status: Acute Assessment and Plan: TSH 5.2, free T41.04, Total T3 1.18. She is not on thyroid supplement. Repeat thyroid panel in 4-6 weeks. (11) Vitamin D insufficiency: Code(s): E55.9 - Vitamin D deficiency, unspecified Status: Chronic DS: Summary Hospital Course Reason for hospitalization: Fell out of chair. Hospital Course: Deepali Haro is a
[2022-02-23 14:00] VITALS: BP 115/77; PULSE 76; RESP 16; TEMP 37.5; O2SAT 97
== END 2022-02-23 16:12 ==
LOC: ANHED 14:25 → ANH3MEDSUR 17:15
PROVIDERS: Nurse Practitioner; Admitting Provider Internal Medicine; Emergency Provider Emergency Medicine; PCP Family Medicine; Visit Provider Nurse Practitioner Family
DX: N39.0 Urinary tract infection, site not specified (principal); B95.2 Enterococcus as the cause of diseases classified elsewhere; Z16.21 Resistance to vancomycin; S01.81XA Laceration without foreign body of other part of head, initial encounter; W05.0XXA Fall from non-moving wheelchair, initial encounter; Y92.129 Unspecified place in nursing home as the place of occurrence of the external cause; R79.89 Other specified abnormal findings of blood chemistry; I10 Essential (primary) hypertension; G30.1 Alzheimer's disease with late onset; F02.80 Dementia in other diseases classified elsewhere, unspecified severity, without behavioral disturbance, psychotic disturbance, mood disturbance, and anxiety; S22.080A Wedge compression fracture of T11-T12 vertebra, initial encounter for closed fracture; D50.9 Iron deficiency anemia, unspecified; R29.6 Repeated falls; E55.9 Vitamin D deficiency, unspecified; E87.5 Hyperkalemia; M81.0 Age-related osteoporosis without current pathological fracture; J98.11 Atelectasis; Z95.5 Presence of coronary angioplasty implant and graft; I44.0 Atrioventricular block, first degree; F41.9 Anxiety disorder, unspecified; I45.10 Unspecified right bundle-branch block; M19.172 Post-traumatic osteoarthritis, left ankle and foot; M19.171 Post-traumatic osteoarthritis, right ankle and foot; M47.812 Spondylosis without myelopathy or radiculopathy, cervical region; R90.82 White matter disease, unspecified; K44.9 Diaphragmatic hernia without obstruction or gangrene; Z66 Do not resuscitate; Z20.822 Contact with and (suspected) exposure to COVID-19; M16.9 Osteoarthritis of hip, unspecified; Z79.82 Long term (current) use of aspirin; Z79.899 Other long term (current) drug therapy; Z82.49 Family history of ischemic heart disease and other diseases of the circulatory system; Z82.0 Family history of epilepsy and other diseases of the nervous system
CPT/HCPCS: 12011; 36415; 51701; 70450; 71045; 72125; 72170; 80053; 81001; 82306; 82607; 82728; 82746; 83605; 83615; 83690; 83735; 83880; 84439; 84443; 84480; 84484; 85025; 85380; 85610; 85730; 87040; 87086; 87147; 87181; 87186; 87426; 93005; 93970; 96365; 96366; 99285; A9270; C9803; G0378; J0696

== ENCOUNTER 2022-02-24 09:50 | Emergency (ER) | payer MEDICARE, SELFPAY ==
--- NOTE | ~2022-02-24 | CT_ITS ---
EXAMINATION: CT brain wo con DATE: 02/24/2022 10:14 INDICATION: Head injury TECHNIQUE: Computed tomography (CT) of the head was performed without intravenous contrast. Sagittal and coronal reconstructions were performed. The mA was adjusted according to patient size. Iterative reconstruction technique was employed. The dose-length product was 605.33 mGy-cm. COMPARISON: 02/21/2022 FINDINGS: Small right frontal scalp hematoma. No fracture. No acute intracranial hemorrhage, acute infarction o r abnormal extra axial fluid collection. 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 Unchanged extensive scattered white matter hypoattenuation consistent with chronic small vessel ischemic disease. Stable appearance of symmetric prominence of the sulci and ventricles consistent with moderate age-appropria te diffuse cerebral volume loss. No mass/mass effect. Changes of bilateral intraocular lens replaceme nt. Unchanged mucosal thickening versus polyp in the left nasal cavity along the base of the middle t urbinate. The paranasal sinuses and mastoid air cells are normal. Intracranial calcified cerebral ath erosclerosis is noted. IMPRESSION: 1. No fracture or acute intracranial process. 2. 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 3. Atrophic changes including moderate diffuse volume loss and extensive scattered white matter hypoa ttenuation consistent with chronic small vessel ischemic disease. Reviewed, dictated and finalized at location A. IMPRESSION: 1. No fracture or acute intracranial process. 2. 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 3. Atrophic changes including moderate diffuse volume loss and extensive scatte red white matter hypoattenuation consistent with chronic small vessel ischemic disease.
--- NOTE | ~2022-02-24 | CT_ITS ---
EXAMINATION: CT cervical spine wo con DATE: 02/24/2022 10:14 INDICATION: Blunt trauma. Neck pain. TECHNIQUE: Computed tomography (CT) of the cervical spine was performed without intravenous contrast. The dose-length product was 161 mGy-cm. Automated exposure control and iterative reconstruction tech Enlightedque were employed. COMPARISON: CT dated 02/21/2022 FINDINGS: There is moderate multilevel uncinate and facet hypertrophy. There is degenerative anteroli sthesis at C3-4 and retrolisthesis at C5-6. There is degenerative disc disease at C4-5, C5-6 and C6-7 . Odontoid process is normal. No evidence for perched facet. Craniovertebral junction is normal. Ther e is apical pleural thickening/scarring bilaterally. No significant paraspinal soft tissue abnormalit y. IMPRESSION: 1. No acute fracture. 2: Severe cervical spondylosis. Reviewed, dictated and finalized at location A.
[2022-02-24 09:52] VITALS: BP 131/106; PULSE 79; RESP 17; TEMP 35.9; O2SAT 95
--- NOTE | 2022-02-24 09:55 | ECG_ITS ---
Measurements Intervals [place] Rate: 79 P: 71 NE: 239 QRS: -24 QRSD: 155 T: -19 QT: 456 QTc: 524 Interpretive Statements SINUS RHYTHM WITH FIRST DEGREE AV BLOCK RIGHT BUNDLE BRANCH BLOCK ABNORMAL ECG COMPARED TO ECG 02/21/2022 13:30:53 NO SIGNIFICANT CHANGES Electronically Signed On 02-24-2022 17:24:03 CDT by Juan Banks M.D.
[2022-02-24 10:06] LABS: Basophils Absolute Auto 0.1 K/mm3 (0.0-0.1); Basophils Percent Auto 0.8 % (0.2-1.2); Eosinophils Absolute Auto 0.1 K/mm3 (0-0.3); Eosinophils Percent Auto 1.4 % (0-4.4); Hematocrit 38.5 % (37.0-47.0); Hemoglobin 13.1 g/dL (12.0-15.0); Immature Granulocyte Absolute 0.08 K/mm3 (0.00-0.031); Lymphocytes Absolute Auto 1.22 K/mm3 (0.9-3.2); Lymphocytes Percent Auto 15.7 % (18.3-44.2); Mean Corpuscular Hemoglobin 30.3 pg (26-34); Mean Corpuscular Volume 89.1 fl (80-100); Mean Platelet Volume 11.1 fl (7.4-10.4); Monocytes Absolute Auto 0.4 K/mm3 (0.1-0.6); Monocytes Percent Auto 5.3 % (2.6-8.5); Neutrophils Absolute Auto 5.9 K/mm3 (1.3-6.7); Neutrophils Percent Auto 75.8 % (45.5-73.1); Platelet Count Result 222 k/mm3 (150-375); Red Blood Count 4.32 M/mm3 (4.2-5.4); Red Cell Distribution Width 12.6 % (11.5-14.5); White Blood Count 7.8 K/mm3 (4.5-10.0)
[2022-02-24 10:17] LABS: Prothrombin Time 13.1 Seconds (11.1-14.7)
[2022-02-24 10:18] LABS: Partial Thromboplastin Time 29.7 SECONDS (22.3-36.8)
[2022-02-24 10:21] LABS: Anion Gap 9 mmol/L (8-16); Blood Urea Nitrogen 17 mg/dL (7-17); Calcium 8.9 mg/dL (8.4-10.2); Carbon Dioxide 27 mmol/L (22-30); Chloride 102 mmol/L (98-107); Estimated CRCL calculation 48 ml/min; Estimated Glomerular Filt Rate > 60; Glucose 145 mg/dL (65-110); Potassium 3.4 mmol/L (3.4-5.0); Sodium 138 mmol/L (137-145)
[2022-02-24 10:39] LABS: Appearance Urine Clear (Clear); Bilirubin Urine 1+ (Negative); Blood Urine Negative (Negative); Color Urine Yellow (Yellow); Glucose Urine UA Negative (Negative); Ketones Urine 2+ mg/dL (Negative); Leukocyte Esterase Ur Trace LEU/UL (Negative); Nitrate Urine Negative (Negative); Protein Urine 1+ mg/dL (Negative); Specific Grav Ur >= 1.030 (1.001-1.035); Urobilinogen Urine 0.2 mg/dL (<2.0); pH Urine 5.5 (5.0-9.0)
[2022-02-24 11:05] LABS: Bacteria Urine Trace /hpf; Mucus Urine Rare /lpf; Squamous Epithelial Cell Urine Rare /hpf (Few); WBC Urine 31-50 /hpf
[2022-02-24 11:06] LABS: Add Urine Microscopic? YES
--- NOTE | 2022-02-24 12:47 | ED.HEATRA ---
HPI - Head Injury General Chief complaint: Head Injury Stated complaint: fall decreased MS History of Present Illness HPI Narrative: Patient is an 86-year-old female who presents ER status post fall. Patient discharged from [facility] yesterday after being treated for VRE UTI. She is on amoxicillin. Patient also fell prior to arrival of that admission. Patient has a laceration to her right eyebrow. Patient is on blood thinners. She had decreased mental status after her fall today and EMS reports she was not responding to sternal rub. Related Data Home Medications Medication Instructions Recorded Confirmed multivitamin,xa-wlmu-bkiwjzyn 1 tablet PO DAILY 12/20/19 02/21/22 (Complete Multivitamin tablet) amlodipine 5 mg tablet (Norvasc) 2.5 mg PO QHS 12/09/21 02/21/22 calcitonin (salmon) 200 1 spray intranasal DAILY 12/09/21 02/21/22 unit/actuation nasal spray mirtazapine 7.5 mg tablet 7.5 mg PO DAILY 12/09/21 02/21/22 aspirin 81 mg tablet 81 mg PO DAILY 02/21/22 02/21/22 viahwixli-ekiQ-uvrmjwj-FOS-bromelain 30 ml PO DAILY 02/21/22 02/21/22 1,937 mg-188 mg/15 mL oral liquid docusate sodium 100 mg capsule 100 mg PO DAILY 02/21/22 02/21/22 ferrous sulfate 325 mg (65 mg 325 mg PO DAILY 02/21/22 02/21/22 iron) tablet (Iron (ferrous sulfate)) memantine 5 mg tablet 5 mg PO BID 02/21/22 02/21/22 Allergies Allergy/AdvReac Type Severity Reaction Status Date / Time Sulfa (Sulfonamide Allergy Mild Unknown Verified 07/15/20 14:18 Antibiotics) simvastatin Allergy Unknown Verified 07/15/20 14:18 sulfanilamide Allergy Unknown Verified 07/15/20 14:18 Pino Allergy Mild Unknown Uncoded 07/15/20 14:18 Review of Systems Review of Systems: ROS unobtainable: Yes unobtainable due to medical condition PMFSH Past Medical History Medical History (Updated 02/24/22 @ 15:20 by Josh Quintero MD) Alzheimer's disease with late onset Anxiety Closed wedge compression fracture of T12 vertebra Hard of hearing Hyperlipidemia Iron deficiency anemia Osteoporosis Surgical History Surgical History History of colonoscopy 2008 that demonstrated hemorrhoids History of coronary artery stent placement With cardiac stent placed in 1998 and 2004 History of dilation and curettage Status post cataract extraction of both eyes with insertion of intraocular lens Family History Family History Mother Dementia CAD (coronary artery disease) Cerebrovascular accident Father CAD (coronary artery disease) Colon cancer Sibling Dementia TIA (transient ischemic attack) Heart attack Mother Cerebrovascular accident Family history of coronary artery disease Father Carcinoma of colon, Onset Age: 74 Family history of coronary artery disease Sibling Family history of seizure disorder Acute myocardial infarction Other Family history of cardiovascular disease Family history of mental disorder Social History Social History Social History: the patient is and lives at [facility]. She is retired. She has a daughter Christi and does son Rick listed in her contacts. She has fili Lopez listed as her spouse. 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 Gender identity (if verbalized by the patient): Female Sexual Orientation (if Verbalized by the Patient): Straight or Heterosexual Spiritual care concerns: No Exam Narrative: GENERAL: Chronically ill-appearing and frail, and in no acute distress. HEAD: Normocephalic, 2 cm V shaped laceration lateral to the right eyebrow. EYES: PERRL and EOMI. ENT: Mucous membranes moist. NECK: C-spine immobilized CHEST:
--- NOTE | 2022-02-24 13:00 | PC.NURSE ---
Patient c-collar removed at this time.
--- NOTE | 2022-02-24 13:20 | ECG_ITS ---
Measurements Intervals [place] Rate: 83 P: 85 MA: 239 QRS: -28 QRSD: 153 T: -6 QT: 434 QTc: 512 Interpretive Statements SINUS RHYTHM WITH FIRST DEGREE AV BLOCK RIGHT BUNDLE BRANCH BLOCK COMPARED TO ECG 02/24/2022 09:55:58 NO SIGNIFICANT CHANGES Electronically Signed On 03-02-2022 11:13:56 CDT by Nery Ozuna M.D.
--- NOTE | 2022-02-24 15:49 | PC.NURSE ---
Patient care report called to July, nurse at [facility]. All questions answered at this time. Facility transport unavailable per staff.
--- NOTE | 2022-02-24 16:29 | PC.NURSE ---
Patient was a max assist into a wheelchair and max assist into patient's husbands car. Patient's given patient's discharge paper for facility.
== END 2022-02-24 16:32 ==
PROVIDERS: Emergency Provider Emergency Medicine; PCP Family Medicine
DX: S01.111A Laceration without foreign body of right eyelid and periocular area, initial encounter (principal); W19.XXXA Unspecified fall, initial encounter; Z91.81 History of falling; E78.5 Hyperlipidemia, unspecified; D50.9 Iron deficiency anemia, unspecified; G30.1 Alzheimer's disease with late onset; F02.80 Dementia in other diseases classified elsewhere, unspecified severity, without behavioral disturbance, psychotic disturbance, mood disturbance, and anxiety; M81.0 Age-related osteoporosis without current pathological fracture; F41.9 Anxiety disorder, unspecified; Z79.82 Long term (current) use of aspirin; Z95.5 Presence of coronary angioplasty implant and graft; Z79.899 Other long term (current) drug therapy
CPT/HCPCS: 12011; 36415; 70450; 72125; 80048; 81001; 85025; 85610; 85730; 87086; 93005; 99284